=== PATIENT | female | born 1955 | race Caucasian/White ===

== ENCOUNTER 2021-05-18 09:16 | Inpatient (IN) ==
[2021-05-18 10:29] LABS: Basophils # (auto) 0.02 K/uL (0-0.2); Basophils % (auto) 0.2 %; Eosinophils # (auto) 0.21 K/uL (0-0.5); Eosinophils % (auto) 2.1 %; Hematocrit (blood only) 38.7 % (37-47); Hemoglobin 12.7 g/dL (12.0-16.0); Immature Granulocytes # (auto) 0.01 K/uL (0.00-0.02); Immature Granulocytes % (auto) 0.1 %; Lymphocytes # (auto) 1.18 K/uL (1.2-3.4); Lymphocytes % (auto) 12.1 %; Mean Corpuscular Hemoglobin 28.3 pg (25-34); Mean Corpuscular Hgb Conc 32.8 g/dL (32-36); Mean Corpuscular Volume 86.2 fL (80-100); Monocytes # (auto) 0.88 K/uL (0.11-0.59); Neutrophils # (auto) 7.49 K/uL (1.4-6.5); Neutrophils % (auto) 76.5 %; Platelet Count 248 K/uL (130-400); RDW Coefficient of Variation 14.8 % (11.5-14.5); RDW Standard Deviation 47.2 fL (36.4-46.3); Red Blood Count 4.49 M/uL (4.2-5.4); White Blood Count 9.79 K/uL (4.8-10.8)
[2021-05-18 10:40] LABS: Partial Thromboplastin Ratio 0.9; Partial Thromboplastin Time 23.4 Seconds (21.0-31.0); Prothrombin Time 9.7 Seconds (9.0-12.0)
[2021-05-18 10:45] LABS: Alanine Aminotransferase 28 U/L (12-78); Albumin Level 3.3 gm/dl (3.4-5.0); Aspartate Aminotransferase 20 U/L (15-37); BUN Creatinine Ratio 28.9 (10-20); Blood Urea Nitrogen 25 mg/dl (7-18); Calcium 8.8 mg/dl (8.5-10.1); Carbon Dioxide 30 mmol/L (21-32); Chloride 104 mmol/L (98-107); Est GFR (African American) 80.5 ml/min; Est GFR (Non-African American) 69.4 ml/min; Glucose 118 mg/dl (70-99); Magnesium 2.1 mg/dl (1.8-2.4); Potassium 3.2 mmol/L (3.5-5.1); Sodium 138 mmol/L (136-145)
[2021-05-18 10:55] LABS: Albumin Globulin Ratio 0.8 (0.9-2); Alkaline Phosphatase 153 U/L (45-117); Globulin 4.3 gm/dl (2.5-4.0); Total Protein 7.6 gm/dl (6.4-8.2); Troponin I < 0.015 ng/ml (0-0.045)
[2021-05-18] MEDS ORDERED: OPTIRAY 320 125ml IV ONE (11:38)
--- NOTE | 2021-05-18 11:57 | CT Scan Report ---
CT OF THE HEAD WITHOUT CONTRAST CLINICAL HISTORY: Stroke Like Symptoms COMPARISON STUDY: No previous studies for comparison. TECHNIQUE: Helical axial images of the head were obtained without IV contrast. Automated exposure con trol was utilized for the study. A dose lowering technique was utilized adhering to the principles o f ALARA. FINDINGS: No acute intracranial hemorrhage, midline shift or mass effect is present. Ventricular syst em is unremarkable. Basal cisterns are patent. Multifocal encephalomalacia within the left cerebral h emisphere is noted, involving the left frontal and parietal lobes. There is volume loss. There are no findings to suggest acute dural sinus thrombosis or acute territorial infarct. There are no signific ant calvarial abnormalities. IMPRESSION: 1. No acute intracranial findings. 2. Multifocal encephalomalacia with the left cerebral hemisphere suggestive of old infarcts. ACT 112: Negative or not required by law. Electronically signed by: Bi Deutsch M.D. 05/18/2021 11:56 AM
--- NOTE | 2021-05-18 11:57 | CT Scan Report ---
HEAD CTA HISTORY: Dizziness. Headache. Stroke Like Symptoms TECHNIQUE: Multiaxial CT images of the head were performed following the intravenous administration o f contrast to evaluate the major cerebral vessels. Maximum intensity projection images were also obta ined. A dose lowering technique was utilized adhering to the principles of ALARA. COMPARISON: None. FINDINGS: Encephalomalacia within the left frontal and left parietal lobes consistent with old infarc ts. The distal vertebral arteries and basilar artery are widely patent. The bilateral ACAs, MCAs, and opticianry teacher show no significant stenosis, occlusion, aneurysm. The major dural venous sinuses appear patent . Mild calcified plaque within the right carotid siphon without significant stenosis. There is only a trickle of contrast identified within the left intracranial internal carotid artery. There is recons titution of flow within the supraclinoid left ICA likely due to retrograde flow from the [place]. These findings favor chronic critical stenosis within the visualized left internal carotid aminta ry given the associated old left-sided infarcts. IMPRESSION: 1. There is only a trickle of contrast identified within the left intracranial internal carotid arter y. There is reconstitution of flow within the supraclinoid left ICA likely due to retrograde flow fro m the [place]. These findings favor chronic critical stenosis within the visualized left int ernal carotid artery given the associated old left-sided infarcts. 2. No significant stenosis, occlusion, or aneurysm within the bilateral ACAs, MCAs, or opticianry teacher. ACT 112: Negative or not required by law. Electronically signed by: Addi Rodríguez M.D. 05/18/2021 11:56 AM
--- NOTE | 2021-05-18 12:02 | CT Scan Report ---
CT angio neck with con CLINICAL HISTORY: Stroke Like Symptoms COMPARISON STUDY: No previous studies for comparison. TECHNIQUE: CT angiography was performed from the aortic arch to the skull base. MIP imaging was perfo rmed. The patient was scanned in a dynamic helical fashion during intravenous administration of 120 c c of Optiray. A dose lowering technique was utilized adhering to the principles of ALARA. CT DOSE: 1178.51 mGy.cm Technique: CT angiogram of the carotid and vertebral arteries was obtained using intravenous contrast and 3-D reconstruction. NASCET criteria was utilized. Findings: There is a 15 mm right lobe thyroid nodule. There are advanced atheromatous changes with carotid bulb calcification. There is a 75% diameter narr owing at the level the carotid bulb. There is a 67% stenosis of the right internal carotid artery gabriella gin. There is extensive atheromatous plaque within the cervical internal carotid. There is an 80% justyna meter narrowing of the internal carotid 2 cm distal to the bifurcation. There are moderate atheromatous changes within the left common carotid artery. There is a subtotal oc clusion of the left internal carotid artery with a string sign. There is no evidence of hemodynamically significant vertebral stenosis. There is no evidence of verte bral dissection. IMPRESSION: 1. Severe atherosclerotic changes involving both carotids 2. Subtotal occlusion of the left internal carotid artery with a string sign 3. Multifocal right internal carotid artery stenosis measuring a maximum of approximately 80% 2 cm di stal to the bifurcation 4. 75% diameter narrowing of the right carotid bulb ACT 112: Negative or not required by law. Electronically signed by: Bentley Madera M.D. 05/18/2021 12:01 PM
--- NOTE | 2021-05-18 14:01 | History & Physical Report ---
Date of Service May 18, 2021 Assessment & Plan (1) Right leg weakness: (2) Carotid stenosis, bilateral: Plan: -Admit to PCU -Patient presenting from home with reports of headache, lightheadedness, dizziness, right leg weakness -in the ED, head CT shows evidence of old left cerebral hemisphere infarcts -Head/neck CTA shows R ICA stenosis 80% and L ICA string sign -Vascular surgery consult, case discussed with Tomasa Lilly PA-C - Dr. Singh feels as though left ICA is totally occluded and would not benefit from surgical intervention, patient will need follow-up with their office in 6 months for right ICA stenosis follow-up -Given acute symptoms, check brain MRI -likely will need ASA and Plavix, awaiting brain MRI results -Continue statin -Neurology consult, input appreciated -Echo -No indication to continue Coumadin at this time, monitor on telemetry for evidence of atrial fibrillation (3) HTN (hypertension): Plan: -BP currently controlled however will hold anti-hypertensives to allow for permissive hypertension in the setting of possible acute CVA (4) DVT prophylaxis: Plan: -SCDs for now History of Present Illness Chief Complaint: Lightheadedness, dizziness, ambulatory dysfunction Primary Care Provider: Jason Donahue MD 66-year-old female with PMH dyslipidemia, tobacco abuse disorder, history of CVA, HTN, anticoagulant Coumadin, and other problems to below who presents the ED for evaluation of lightheadedness, dizziness, difficulty ambulating. Per neurology note from 2000, she had a left hemisphere stroke and she had intracranial stenosis in the left internal carotid and was placed on Coumadin. Patient was lost to follow-up with neurology and has remained on Coumadin since that time. On 05/12, patient was seen in the ENT clinic for evaluation of voice hoarseness. Lesion was noted concerning for malignancy and direct laryngoscopy and biopsy was recommended. Patient is on Coumadin however declined Lovenox bridge as recommended by [facility], therefore Coumadin has been on hold since 05/12. Patient reports she developed a headache shortly after the ENT clinic eval. she also reports lightheadedness and dizziness with standing. A couple of days past and she reports that she noted that she was leaning to the right while walking and began dragging her right leg. Patient was scheduled for direct laryngoscopy today however given the aforementioned symptoms, presented to the ED for further evaluation. Patient denies chest pain or shortness of breath. No abdominal pain, nausea, vomiting, diarrhea. Denies any other recent il lnesses, fevers, chills. No urinary symptoms. In the ED, head CT is negative for acute findings however shows old left cerebral hemisphere infarcts. Head and neck CTA shows severe atherosclerotic changes of both carotid arteries. Labs are unremarkable, patient is hemodynamically stable. Allergies Allergy/AdvReac Type Severity Reaction Status Date / Time No Known Drug Allergies Allergy Unknown ` Verified 05/18/21 11:33 Home Medications Medication Instructions Recorded Confirmed Type albuterol sulfate 90 mcg/actuation 1 puff INHALATION QID 05/18/21 05/18/21 History aerosol inhaler amlodipine 10 mg tablet 10 mg PO QAM 05/18/21 05/18/21 History atorvastatin 80 mg tablet 80 mg PO PM 05/18/21 05/18/21 History citalopram 10 mg tablet 10 mg PO QAM 05/18/21 05/18/21 History hydrochlorothiazide 25 mg tablet 25 mg PO QAM 05/18/21 05/18/21 History metoprolol succinate 100 mg 100 mg PO BID 05/18/21 05/18/21 History tablet,extended release 24 hr temazepam 15 mg capsule 15 mg PO HS 05/18/21 05/18/21 History warfarin 7.5 mg tablet 3.75 - 7.5 mg PO QAM 05/18/21 05/18/21 History Past Med/Surg History Medical History Carotid stenosis, bilateral History of CVA (cerebrovascular accident) HLD (hyperlipidemia) HTN (hypertension) Trimalleolar fracture of right ankle Surgical History History of cataract surgery No pertinent past surgical history Family History Father Heart disease Social History Smoking Status: Current every day smoker Tobacco Type: Cigarettes Cigarettes Per Day: 10; Hx Alcohol Use: No Hx Substance Use: No Preferred Language: Bengali Communication Ability: Effective Employee Communications Intern Required: No Beliefs That Will Affect Care: None Current Living Situation: Alone Other Information That Helps Us Care for You: No Feels Safe at Home: Yes Safety Concerns: Feels Safe At This Time Assistive Devices: None Review of Systems Review of Systems: ROS per HPI, all other systems reviewed and negative Physical Exam Constitutional: WD/WN, vitals as above Eyes: PERRL, conjunctivae normal, anicteric sclerae ENMT: external ear and nose normal, oropharynx normal Respiratory: normal respiratory effort, lungs clear to auscultation Cardiovascular: Rate/Rhythm: regular rate and regular rhythm Vessels: normal peripheral pulses Extremities: no edema Gastrointestinal (Abdomen): normal bowel sounds, soft, nontender, no hepatosplenomegaly Musculoskeletal: Extremities: no cyanosis and no clubbing Skin: RLE weakness 4/5 Neurologic: PERRL, EOMI, accommodation nl, no face palsy, no dysarthria moves all extremities; not confused Motor/Sensory: no pronator drift Coordination: + abnormal [id number]-af-[id number] test (difficulty with right heel to left luna); normal [id number] test Psychiatric: A+Ox3, euthymic affect Results & Data Results & [facility] ([facility]) Vital Signs (Past 12 Hours) Vital Signs Temp Pulse Pulse Resp BP BP Pulse Ox 05/18/21 13:00 60 18 96 05/18/21 11:18 62 18 126/63 97 05/18/21 10:30 58 L 20 142/62 H 98 05/18/21 10:00 54 L 17 123/69 05/18/21 09:50 54 L 18 05/18/21 09:40 56 L 20 05/18/21 09:34 54 L 17 05/18/21 09:22 36.7 C 60 16 94 Laboratory Results Short CBC 05/18/21 Range/Units 09:48 WBC 9.79 (4.8-10.8) K/uL Hgb 12.7 (12.0-16.0) g/dL Hct 38.7 (37-47) % Plt Count 248 (130-400) K/uL BMP 05/18/21 09:48 Sodium 138 Potassium 3.2 L Chloride 104 Carbon Dioxide 30 BUN 25 H Creatinine 0.87 Glucose 118 H Calcium 8.8 Cardiac Enzymes 05/18/21 Range/Units 09:48 Troponin I < 0.015 (0-0.045) ng/ml Liver Function 05/18/21 Range/Units 09:48 Total Bilirubin 1.0 (0.2-1) mg/dl AST 20 (15-37) U/L ALT 28 (12-78) U/L Alkaline Phosphatase 153 H (45-117) U/L Albumin 3.3 L (3.4-5.0) gm/dl Diagnostic Findings Head CT 05/18/21 10:19 CT OF THE HEAD WITHOUT CONTRAST CLINICAL HISTORY: Stroke Like Symptoms COMPARISON STUDY: No previous studies for comparison. TECHNIQUE: Helical axial images of the head were obtained without IV contrast. Automated exposure control was utilized for the study. A dose lowering technique was utilized adhering to the principles of ALARA. FINDINGS: No acute intracranial hemorrhage, midline shift or mass effect is present. Ventricular system is unremarkable. Basal cisterns are patent. Multifocal encephalomalacia within the left cerebral hemisphere is noted, involving the left frontal and parietal lobes. There is volume loss. There are no findings to suggest acute dural sinus thrombosis or acute territorial infarct. There are no significant calvarial abnormalities. IMPRESSION: 1. No acute intracranial findings. 2. Multifocal encephalomalacia with the left cerebral hemisphere suggestive of old infarcts. ACT 112: Negative or not required by law. Electronically signed by: Bi Deutsch M.D. 05/18/2021 11:56 AM Head CTA 05/18/21 10:19 HEAD CTA HISTORY: Dizziness. Headache. Stroke Like Symptoms TECHNIQUE: Multiaxial CT images of the head were performed following the intravenous administration of contrast to evaluate the major cerebral vessels. Maximum intensity projection images were also obtained. A dose lowering technique was utilized adhering to the principles of ALARA. COMPARISON: None. FINDINGS: Encephalomalacia within the left frontal and left parietal lobes consistent with old infarcts. The distal vertebral arteries and basilar artery are widely patent. The bilateral ACAs, MCAs, and taxi driver show no significant stenosis, occlusion, aneurysm. The major dural venous sinuses appear patent. Mild calcified plaque within the right carotid siphon without significant stenosis. There is only a trickle of contrast identified within the left intrac ranial internal carotid artery. There is reconstitution of flow within the supraclinoid left ICA likely due to retrograde flow from the [place]. These findings favor chronic critical stenosis within the visualized left internal carotid artery given the associated old left-sided infarcts. IMPRESSION: 1. There is only a trickle of contrast identified within the left intracranial internal carotid artery. There is reconstitution of flow within the supraclinoid left ICA likely due to retrograde flow from the [place]. These findings favor chronic critical stenosis within the visualized left internal carotid artery given the associated old left-sided infarcts. 2. No significant stenosis, occlusion, or aneurysm within the bilateral ACAs, MCAs, or taxi driver. ACT 112: Negative or not required by law. Electronically signed by: Addi Rodríguez M.D. 05/18/2021 11:56 AM Neck CTA 05/18/21 10:19 CT angio neck with con CLINICAL HISTORY: Stroke Like Symptoms COMPARISON STUDY: No previous studies for comparison. TECHNIQUE: CT angiography was performed from the aortic arch to the skull base. MIP imaging was performed. The patient was scanned in a dynamic helical fashion during intravenous administration of 120 cc of Optiray. A dose lowering technique was utilized adhering to the principles of ALARA. CT DOSE: 1178.51 mGy.cm Technique: CT angiogram of the carotid and vertebral arteries was obtained using intravenous contrast and 3-D reconstruction. NASCET criteria was utilized. Findings: There is a 15 mm right lobe thyroid nodule. There are advanced atheromatous changes with carotid bulb calcification. There is a 75% diameter narrowing at the level the carotid bulb. There is a 67% stenosis of the right internal carotid artery origin. There is extensive atheromatous plaque within the cervical internal carotid. There is an 80% diameter narrowing of the internal carotid 2 cm distal to the bifurcation. There are moderate atheromatous changes within the left common carotid artery. There is a subtotal occlusion of the left internal carotid artery with a string sign. There is no evidence of hemodynamically significant vertebral stenosis. There is no evidence of vertebral dissection. IMPRESSION: 1. Severe atherosclerotic changes involving both carotids 2. Subtotal occlusion of the left internal carotid artery with a string sign 3. Multifocal right internal carotid artery stenosis measuring a maximum of approximately 80% 2 cm distal to the bifurcation 4. 75% diameter narrowing of the right carotid bulb ACT 112: Negative or not required by law. Electronically signed by: Bentley Madera M.D. 05/18/2021 12:01 PM Code Status & VTE Plan Code Status Patient is a full code as per my discussion with her. VTE Prophylaxis Plan VTE Prophylaxis will be ordered: Yes Supervising Physician Co-Signing Physician Notes Attending Addendum: Late entry, date of service noted above care coordinated with MORENA nguyen's notes please refer to her notes for full details, I agree with her notes patient seen and examined, records reviewed by myself as well on exam, patient seen sitting up in bed, not in distress, comfortable States left side is still weak No headache, dizziness, chest pain, shortness of breath, cough no other symptoms VS noted and reviewed oriented x3, not in distress, speaks in sentences with no effort nor accessory muscle use normal rate, regular rhythm, no murmurs clear breath sounds bilaterally non distended, soft, nontender no bipedal edema, erythema, warmth Oriented x3, cranial nerves II to XII grossly intact except for mild left facial droop, right 5/5 motor strength, left 2 out of 5 motor strength WBC 9.7 Hg 12.7 Crea 0.73 Brain MRI positive for watershed infarcts of the right frontal lobe ASSESSMENT AND PLAN Acute CVA Bilateral carotid artery stenosis --Hold Coumadin, start aspirin Plavix Continue statin Permissive hypertension, hold metoprolol and amlodipine, HCTZ Neurology consultation other diagnoses and plan of care as per MORENA nguyen's notes Lewis Wilkins MD
--- NOTE | 2021-05-18 15:04 | Consultation ---
Date of Consultation May 18, 2021 Assessment & Plan (1) Carotid stenosis, bilateral: Pt with R ICA stenosis of approx 75-80%, and L ICA string sign vs occlusion with reconstitution by CTA. Dr Singh reviewed CTA images and it appears that her L ICA is diminutive/occluded and would not benefit from surgical intervention. No indications for vascular surgical intervention. Anticoagulation not indicated for carotid stenosis. Could consider ASA/plavix d/t acute sx, but will defer to neurology. Do recommend at least single antiplatelet therapy with ASA. Recommend pt undergo surveillance of her R ICA with carotid US in 6 months. Office will contact pt to schedule. Please call if needed. Patient chart reviewed. Agree with treatment plan of the Vascular PA. History of Present Illness Reason for Consultation: carotid stenosis Attending Physician: Gus Singh MD History of Present Illness 66 yo f with hx of carotid stenosis and CVA with R sided hemiplegia in 2008, HTN, hyperlipidemia, asthma, admitted with 3 day hx of worsening R sided arm and leg weakness, seen in consultation today for BL ICA stenosis on CTA. Pt states she was told she could not have surgery on her L carotid artery in 2008 d/t the artery was "missing." States she was placed on coumadin at the time. States she had to "learn to walk and talk" again d/t the severity of her CVA. States she has been in normal state of health, but underwent a laryngoscope about 2 weeks ago and has had a R sided DENNISON since that time. Also c/o dizziness. Stopped her coumadin a few days ago in preparation for a bx that was to be done today, but was cx. Admits R arm/leg weakness, and states she is not able to ambulate d/t R leg weakness. Denies numbness, amaurosis, difficulty speaking or swallowing. States she is hungry. Denies recent illness, chest pain, palpitations, fever, abd pain, SOB, cough, N/V, rest pain, claudication, other complaints. CTA neck demonstrates approx 75-80% stenosis of R ICA and a string sing vs occlusion of L ICA with reconstitution. Old L hemispheric CVA noted. Allergies Allergy/AdvReac Type Severity Reaction Status Date / Time No Known Drug Allergies Allergy Unknown ` Verified 05/18/21 11:33 Home Medications Medication Instructions Recorded Confirmed Type albuterol sulfate 90 mcg/actuation 1 puff INHALATION QID 05/18/21 05/18/21 History aerosol inhaler amlodipine 10 mg tablet 10 mg PO QAM 05/18/21 05/18/21 History atorvastatin 80 mg tablet 80 mg PO PM 05/18/21 05/18/21 History citalopram 10 mg tablet 10 mg PO QAM 05/18/21 05/18/21 History hydrochlorothiazide 25 mg tablet 25 mg PO QAM 05/18/21 05/18/21 History metoprolol succinate 100 mg 100 mg PO BID 05/18/21 05/18/21 History tablet,extended release 24 hr temazepam 15 mg capsule 15 mg PO HS 05/18/21 05/18/21 History warfarin 7.5 mg tablet 3.75 - 7.5 mg PO QAM 05/18/21 05/18/21 History Patient History Medical History Carotid stenosis, bilateral History of CVA (cerebrovascular accident) HLD (hyperlipidemia) HTN (hypertension) Trimalleolar fracture of right ankle Surgical History History of cataract surgery No pertinent past surgical history Family History Father Heart disease Social History Smoking Status: Current every day smoker Tobacco Type: Cigarettes Cigarettes Per Day: 10; Hx Alcohol Use: No Hx Substance Use: No Preferred Language: Egyptian Communication Ability: Effective Back Tender Cylinder Required: No Beliefs That Will Affect Care: None Current Living Situation: Alone Other Information That Helps Us Care for You: No Feels Safe at Home: Yes Safety Concerns: Feels Safe At This Time Assistive Devices: Denture - Upper Review of Systems Review of Systems: As per HPI, otherwise negative Physical Exam Constitutional: WD/WN, vitals as above Respiratory: normal respiratory effort, lungs clear to auscultation Auscultation: + diminished lung sounds Cardiovascular: Rate/Rhythm: regular rate and regular rhythm Vessels: + carotid bruit, femoral pulses present, posterior tibial pulses present (nonpalpable BLE), dorsalis pedis pulses present (+2 LLE, +1 RLE), brachial pulses present and radial pulses present; + abnormal peripheral pulses Gastrointestinal (Abdomen): normal bowel sounds, soft, nontender, no hepatosplenomegaly Musculoskeletal: Extremities: extremities normal to inspection Neurologic: moves all extremities, + focal motor deficit (RUE/RLE 4/5 strength) and awake; not confused Psychiatric: A+Ox3, euthymic affect Results & Data ([facility]) Vital Signs (Past 12 Hours) Vital Signs Temp Pulse Pulse Resp BP BP Pulse Ox 05/18/21 13:00 60 18 96 05/18/21 11:18 62 18 126/63 97 05/18/21 10:30 58 L 20 142/62 H 98 05/18/21 10:00 54 L 17 123/69 05/18/21 09:50 54 L 18 05/18/21 09:40 56 L 20 05/18/21 09:34 54 L 17 05/18/21 09:22 36.7 C 60 16 94
[2021-05-18] MEDS ORDERED: POTASSIUM CHLORIDE CRTAB 20 MEQ TABCR PO STA (15:39)
[2021-05-18] MEDS ORDERED: LORazepam 1 MG/2 ML VIAL IV PRN (16:46)
--- NOTE | 2021-05-18 17:14 | Electrocardiogram Report ---
Test Reason : Blood Pressure : / mmHG Vent. Rate : 057 BPM Atrial Rate : 057 BPM P-R Int : 168 ms QRS Dur : 072 ms QT Int : 440 ms P-R-T Axes : 055 043 064 degrees QTc Int : 428 ms Poor data quality, interpretation may be adversely affected Sinus bradycardia Otherwise normal ECG When compared with ECG of 08-NOV-2014 15:10, No significant change was found Confirmed by Sudarshan Viramontes ([id number]) on 05/18/2021 5:13:20 PM Referred By: REFERRED SELF Confirmed By:Surinder Viramontes
--- NOTE | 2021-05-18 17:30 | Emergency Department Note ---
History of Present Illness General Chief complaint: Neuro Symptoms/Deficit Stated complaint: DIZZY,LEANING TO R SIDE,HEADACHE,LIGHT SENSITIVITY Time Seen by Provider: 05/18/21 09:36 History of Present Illness Provider complaint: Headache near syncope Onset (ago): day(s) 4 Location: head Associated symptoms: + headaches and + weakness; no chest pain, no cough, no fever/chills, no nausea/vomiting or no shortness of breath 66-year-old female presents emergency department for headache weakness and dizziness. Patient reports her headache is 6 out of 10. Patient reports her symptoms began 4 days ago. Patient reports that she was having some difficulty walking and weakness starting yesterday. She reports no falls. Patient does states she feels like she would fall down if she tried to get up and walk. Patient was supposed to have a surgical procedure/biopsy done by ENT at [facility] which she called the [facility] facility the advised her to come to the emergency department to be evaluated instead of going for her procedure. Patient is supposed be on Coumadin but has been off her Coumadin since Sunday to have the biopsy/procedure done. Home Medications Medication Instructions Recorded Confirmed Type albuterol sulfate 90 mcg/actuation 1 puff INHALATION QID 05/18/21 05/18/21 History aerosol inhaler amlodipine 10 mg tablet 10 mg PO QAM 05/18/21 05/18/21 History atorvastatin 80 mg tablet 80 mg PO PM 05/18/21 05/18/21 History citalopram 10 mg tablet 10 mg PO QAM 05/18/21 05/18/21 History hydrochlorothiazide 25 mg tablet 25 mg PO QAM 05/18/21 05/18/21 History metoprolol succinate 100 mg 100 mg PO BID 05/18/21 05/18/21 History tablet,extended release 24 hr temazepam 15 mg capsule 15 mg PO HS 05/18/21 05/18/21 History warfarin 7.5 mg tablet 3.75 - 7.5 mg PO QAM 05/18/21 05/18/21 History Allergies Allergy/AdvReac Type Severity Reaction Status Date / Time No Known Drug Allergies Allergy Unknown ` Verified 05/18/21 11:33 Past Med/Surg History Medical History (Updated 05/18/21 @ 17:30 by Ian Mendieta) Carotid stenosis, bilateral History of CVA (cerebrovascular accident) HLD (hyperlipidemia) HTN (hypertension) Trimalleolar fracture of right ankle Surgical History (Updated 05/18/21 @ 17:30 by MORENA Nguyen) History of cataract surgery No pertinent past surgical history Social History Feels Safe at Home: Yes Review of Systems A total of 10 systems reviewed and were otherwise negative Physical Exam Vital Signs Vital Signs - 24 hr 05/18/21 09:22 05/18/21 09:34 05/18/21 09:40 Temperature 36.7 C Temperature Source Temporal Artery Scan Pulse Rate 60 54 L 56 L Pulse Rate [Apical] Pulse Rate from SpO2 Sensor Respiratory Rate 16 17 20 Respiratory Effort / Characteristics Non-Labored Respiratory Depth Normal Respiratory Pattern Regular Blood Pressure Blood Pressure [Left Arm] Blood Pressure Mean Blood Pressure Mean [Left Arm] Blood Pressure Position Sitting Pulse Oximetry 94 Oxygen Delivery Method Room Air Sepsis Recent Fever Within 48 Hours No Sepsis New/Unexplained Change in Mental Status No Sepsis Action Taken by Nursing No Action Required 05/18/21 09:50 05/18/21 10:00 05/18/21 10:30 Temperature Temperature Source Pulse Rate 54 L 54 L 58 L Pulse Rate [Apical] Pulse Rate from SpO2 Sensor 58 L Respiratory Rate 18 17 20 Respiratory Effort / Characteristics Respiratory Depth Respiratory Pattern Blood Pressure 123/69 142/62 H Blood Pressure [Left Arm] Blood Pressure Mean 87 88 Blood Pressure Mean [Left Arm] Blood Pressure Position Pulse Oximetry 98 Oxygen Delivery Method Sepsis Recent Fever Within 48 Hours Sepsis New/Unexplained Change in Mental Status Sepsis Action Taken by Nursing 05/18/21 11:18 05/18/21 13:00 05/18/21 15:00 Temperature Temperature Source Pulse Rate Pulse Rate [Apical] 62 60 60 Pulse Rate from SpO2 Sensor Respiratory Rate 18 18 18 Respiratory Effort / Characteristics Respiratory Depth Respiratory Pattern Blood Pressure Blood Pressure [Left Arm] 126/63 132/78 Blood Pressure Mean Blood Pressure Mean [Left Arm] 84 96 Blood Pressure Position Pulse Oximetry 97 96 95 Oxygen Delivery Method Room Air Room Air Room Air Sepsis Recent Fever Within 48 Hours Sepsis New/Unexplained Change in Mental Status Sepsis Action Taken by Nursing Physical Exam GENERAL: She is oriented to person, place, and time. She appears well-developed and well-nourished. She does not appear distressed. HENT: Exam performed. -Head: Normocephalic and atraumatic. -Right Ear: External ear normal. No mastoid tenderness. -Left Ear: External ear normal. No mastoid tenderness. -Mouth/Throat: The oropharynx is clear and moist. No trismus in the jaw. No dental abscesses or uvula swelling. No oropharyngeal exudate or tonsillar abscesses. EYES: Conjunctivae and EOM are normal. Pupils are equal, round, and reactive to light. Right eye exhibits no discharge. Left eye exhibits no discharge. No scleral icterus. NECK: Normal range of motion. Neck supple. No JVD present. No spinous process tenderness present. No carotid bruit present. No rigidity. No tracheal deviation and normal range of motion present. No Brudzinski's sign and no Kernig's sign noted. CV: Normal rate, regular rhythm, normal heart sounds and intact distal pulses. There is no peripheral edema. Palpable radial pulses bue. PULM/CHEST: Effort normal and breath sounds normal. No respiratory distress. No stridor. She has no wheezes. She has no rales. -Chest Wall: She exhibits no tenderness. ABD: The abdomen is soft. Bowel sounds are normal. She has no distension. No mass is present. There is no tenderness. There is no rebound, no guarding, no Grande's sign and no tenderness at McBurney's point. Rovsig negative MUSC/SKEL: Normal range of motion. There is no peripheral edema, tenderness or deformity. LYMPH: No cervical adenopathy. NEURO: Weakness of the left lower extremity. Patient is unable to walk in a stable manner and she is dragging her left lower extremity. SKIN: Skin is warm and dry. She is not diaphoretic. PSYCH: She has a normal mood and affect. Behavior is normal. Judgment and thought content normal. Course Course 0936: The patient was evaluated in room C12. A complete history and physical exam was performed Cardiac monitoring: An order was placed for continuous cardiac monitoring. The monitor shows a rate of 60 with sinus rhythm 1320: Vital signs stable. Labs within normal limits. CT of the head within normal limits. CT angios show severe atherosclerosis in both carotid arteries with a subtotal occlusion of left internal carotid artery with a string sign and a multifocal right internal carotid artery stenosis measuring up to 80% of the bifurcation. CTA of the head showed only trickle contrast in the left intracranial internal carotid artery with reconstitution of flow within the cachil dehe of [place] favoring chronic critical stenosis. I did discuss the case with Gloria nguyen ETL APPLICATION DEVEL[facility] as it is thought that the patient had a stroke most likely due to her severe carotid artery disease. Patient is not a TPA candidate as her symptoms started greater than 24 hours ago. She asked that we speak with vascular surgery. I did discuss the case with vascular surgery when PA-C for Dr. Singh who agrees that the [facility] Tomasa states that Dr. Singh will review the CAT scans and agreed to be on consult. Administered Medications Lorazepam (Ativan) 1 mg in 2 mls @ 2 mls/min IV NOW PRN PRN Reason: MRI pre med Stop: 06/17/21 16:45 Last Admin: 05/18/21 17:05 Dose: 2 mls/min Documented by: [id number] Discontinued Medications Ioversol (Optiray 320 125ml) 120 ml IV ONCE ONE Stop: 05/18/21 11:39 Last Admin: 05/18/21 11:39 Dose: 120 ml Documented by: [id number] Potassium Chloride (Potassium Chloride Crtab 20 Meq Tabcr) 40 meq PO NOW STA Stop: 05/18/21 15:40 Last Admin: 05/18/21 16:36 Dose: 40 meq Documented by: [id number] Medical Decision Making Laboratory Data Result diagrams: 05/18/21 09:48 05/18/21 09:48 Lab Results 05/18/21 05/18/21 05/18/21 Range/Units 09:48 09:48 09:48 WBC 9.79 (4.8-10.8) K/uL RBC 4.49 (4.2-5.4) M/uL Hgb 12.7 (12.0-16.0) g/dL Hct 38.7 (37-47) % MCV 86.2 (80-100) fL MCH 28.3 (25-34) pg MCHC 32.8 (32-36) g/dL RDW Std Deviation 47.2 H (36.4-46.3) fL RDW Coeff of Dang 14.8 H (11.5-14.5) % Plt Count 248 (130-400) K/uL MPV 11.0 H (7.4-10.4) fL Immature Gran % (Auto) 0.1 % Neut % (Auto) 76.5 % Lymph % (Auto) 12.1 % [place] % (Auto) 9.0 % Eos % (Auto) 2.1 % Baso % (Auto) 0.2 % Neut # (Auto) 7.49 H (1.4-6.5) K/uL Lymph # (Auto) 1.18 L (1.2-3.4) K/uL [place] # (Auto) 0.88 H (0.11-0.59) K/uL Eos # (Auto) 0.21 (0-0.5) K/uL Baso # (Auto) 0.02 (0-0.2) K/uL Immature Gran # (Auto) 0.01 (0.00-0.02) K/uL PT 9.7 (9.0-12.0) Seconds INR 1.0 (0.9-1.1) APTT 23.4 (21.0-31.0) Seconds PTT Ratio 0.9 Sodium 138 (136-145) mmol/L Potassium 3.2 L (3.5-5.1) mmol/L Chloride 104 (98-107) mmol/L Carbon Dioxide 30 (21-32) mmol/L Anion Gap 4.0 (3-11) BUN 25 H (7-18) mg/dl Creatinine 0.87 (0.6-1.2) mg/dl Est Cr Clr Drug Dosing Not Reportable Est GFR ( Amer) 80.5 ml/min Est GFR (Non-Af Amer) 69.4 ml/min BUN/Creatinine Ratio 28.9 H (10-20) Glucose 118 H (70-99) mg/dl Calcium 8.8 (8.5-10.1) mg/dl Magnesium 2.1 (1.8-2.4) mg/dl Total Bilirubin 1.0 (0.2-1) mg/dl AST 20 (15-37) U/L ALT 28 (12-78) U/L Alkaline Phosphatase 153 H (45-117) U/L Troponin I < 0.015 (0-0.045) ng/ml Total Protein 7.6 (6.4-8.2) gm/dl Albumin 3.3 L (3.4-5.0) gm/dl Globulin 4.3 H (2.5-4.0) gm/dl Albumin/Globulin Ratio 0.8 L (0.9-2) COVID-19 Eval Order SARS-CoV-2 (PCR) (Negative) Blood Type Antibody Screen 05/18/21 05/18/21 05/18/21 Range/Units 10:59 14:45 14:45 WBC (4.8-10.8) K/uL RBC (4.2-5.4) M/uL Hgb (12.0-16.0) g/dL Hct (37-47) % MCV (80-100) fL MCH (25-34) pg MCHC (32-36) g/dL RDW Std Deviation (36.4-46.3) fL RDW Coeff of Dang (11.5-14.5) % Plt Count (130-400) K/uL MPV (7.4-10.4) fL Immature Gran % (Auto) % Neut % (Auto) % Lymph % (Auto) % [place] % (Auto) % Eos % (Auto) % Baso % (Auto) % Neut # (Auto) (1.4-6.5) K/uL Lymph # (Auto) (1.2-3.4) K/uL [place] # (Auto) (0.11-0.59) K/uL Eos # (Auto) (0-0.5) K/uL Baso # (Auto) (0-0.2) K/uL Immature Gran # (Auto) (0.00-0.02) K/uL PT (9.0-12.0) Seconds INR (0.9-1.1) APTT (21.0-31.0) Seconds PTT Ratio Sodium (136-145) mmol/L Potassium (3.5-5.1) mmol/L Chloride (98-107) mmol/L Carbon Dioxide (21-32) mmol/L Anion Gap (3-11) BUN (7-18) mg/dl Creatinine (0.6-1.2) mg/dl Est Cr Clr Drug Dosing Est GFR ( Amer) ml/min Est GFR (Non-Af Amer) ml/min BUN/Creatinine Ratio (10-20) Glucose (70-99) mg/dl Calcium (8.5-10.1) mg/dl Magnesium (1.8-2.4) mg/dl Total Bilirubin (0.2-1) mg/dl AST (15-37) U/L ALT (12-78) U/L Alkaline Phosphatase (45-117) U/L Troponin I (0-0.045) ng/ml Total Protein (6.4-8.2) gm/dl Albumin (3.4-5.0) gm/dl Globulin (2.5-4.0) gm/dl Albumin/Globulin Ratio (0.9-2) COVID-19 Eval Order Covid19 at [facility] SARS-CoV-2 (PCR) NEGATIVE (Negative) Blood Type A Positive Antibody Screen NEGATIVE Imaging Data Radiologist's Impression: Head CT 05/18/21 10:19 CT OF THE HEAD WITHOUT CONTRAST CLINICAL HISTORY: Stroke Like Symptoms COMPARISON STUDY: No previous studies for comparison. TECHNIQUE: Helical axial images of the head were obtained without IV contrast. Automated exposure control was utilized for the study. A dose lowering technique was utilized adhering to the principles of ALARA. FINDINGS: No acute intracranial hemorrhage, midline shift or mass effect is present. Ventricular system is unremarkable. Basal cisterns are patent. Multifocal encephalomalacia within the left cerebral hemisphere is noted, involving the left frontal and parietal lobes. There is volume loss. There are no findings to suggest acute dural sinus thrombosis or acute territorial infarct. There are no significant calvarial abnormalities. IMPRESSION: 1. No acute intracranial findings. 2. Multifocal encephalomalacia with the left cerebral hemisphere suggestive of old infarcts. ACT 112: Negative or not required by law. Electronically signed by: Bi Deutsch M.D. 05/18/2021 11:56 AM Head CTA 05/18/21 10:19 HEAD CTA HISTORY: Dizziness. Headache. Stroke Like Symptoms TECHNIQUE: Multiaxial CT images of the head were performed following the intravenous administration of contrast to evaluate the major cerebral vessels. Maximum intensity projection images were also obtained. A dose lowering technique was utilized adhering to the principles of ALARA. COMPARISON: None. FINDINGS: Encephalomalacia within the left frontal and left parietal lobes consistent with old infarcts. The distal vertebral arteries and basilar artery are widely patent. The bilateral ACAs, MCAs, and application security developer show no significant sten osis, occlusion, aneurysm. The major dural venous sinuses appear patent. Mild calcified plaque within the right carotid siphon without significant stenosis. There is only a trickle of contrast identified within the left intracranial internal carotid artery. There is reconstitution of flow within the supraclinoid left ICA likely due to retrograde flow from the cachil dehe of [place]. These findings favor chronic critical stenosis within the visualized left internal carotid artery given the associated old left-sided infarcts. IMPRESSION: 1. There is only a trickle of contrast identified within the left intracranial internal carotid artery. There is reconstitution of flow within the supraclinoid left ICA likely due to retrograde flow from the c[place]il dehe of [place]. These findings favor chronic critical stenosis within the visualized left internal carotid artery given the associated old left-sided infarcts. 2. No significant stenosis, occlusion, or aneurysm within the bilateral ACAs, MCAs, or application security developer. ACT 112: Negative or not required by law. Electronically signed by: Addi Rodríguez M.D. 05/18/2021 11:56 AM Neck CTA 05/18/21 10:19 CT angio neck with con CLINICAL HISTORY: Stroke Like Symptoms COMPARISON STUDY: No previous studies for comparison. TECHNIQUE: CT angiography was performed from the aortic arch to the skull base. MIP imaging was performed. The patient was scanned in a dynamic helical fashion during intravenous administration of 120 cc of Optiray. A dose lowering technique was utilized adhering to the principles of ALARA. CT DOSE: 1178.51 mGy.cm Technique: CT angiogram of the carotid and vertebral arteries was obtained using intravenous contrast and 3-D reconstruction. NASCET criteria was utilized. Findings: There is a 15 mm right lobe thyroid nodule. There are advanced atheromatous changes with carotid bulb calcification. There is a 75% diameter narrowing at the level the carotid bulb. There is a 67% stenosis of the right internal carotid artery origin. There is extensive atheromatous plaque within the cervical internal carotid. There is an 80% diameter narrowing of the internal carotid 2 cm distal to the bifurcation. There are moderate atheromatous changes within the left common carotid artery. There is a subtotal occlusion of the left internal carotid artery with a string sign. There is no evidence of hemodynamically significant vertebral stenosis. There is no evidence of vertebral dissection. IMPRESSION: 1. Severe atherosclerotic changes involving both carotids 2. Subtotal occlusion of the left internal carotid artery with a string sign 3. Multifocal right internal carotid artery stenosis measuring a maximum of approximately 80% 2 cm distal to the bifurcation 4. 75% diameter narrowing of the right carotid bulb ACT 112: Negative or not required by law. Electronically signed by: Bentley Madera M.D. 05/18/2021 12:01 PM ECG Data Indication: + weakness Rate (beats per minute): 57 Rhythm: + normal sinus ECG Intervals/blocks: + Normal MS and + Normal QT-c ECG ST segments: + Normal ST segments Additional Comments: QRS 72 MDM Narrative Vital signs stable. Labs within normal limits. CT of the head within normal limits. CT angios show severe atherosclerosis in both carotid arteries with a subtotal occlusion of left internal carotid artery with a string sign and a multifocal right internal carotid artery stenosis measuring up to 80% of the bifurcation. CTA of the head showed only trickle contrast in the left intracranial internal carotid artery with reconstitution of flow within the cachil dehe of [place] favoring chronic critical stenosis. I did discuss the case with Gloria nguyen ETL APPLICATION DEVELOPER [facility] as it is thought that the patient had a stroke most likely due to her severe carotid artery disease. Patient is not a TPA candidate as her symptoms started greater than 24 hours ago. She asked that we speak with vascular surgery. I did discuss the case with vascular surgery when PA-C for Dr. Singh who agrees that the [facility] Tomasa states that Dr. Singh will review the CAT scans and agreed to be on consult. Impression & Plan Acute CVA (cerebrovascular accident), Carotid stenosis, bilateral Discharge Plan Visit Data Chief Complaint: Neuro Symptoms/Deficit Stated Complaint: DIZZY,LEANING TO R SIDE,HEADACHE,LIGHT SENSITIVITY ED Provider: Ian Mendieta Discharge Problem: Acute CVA (cerebrovascular accident), Carotid stenosis, bilateral Patient Disposition: Admitted As Inpatient Forms Stand Alone Forms: [facility] Prescriptions Prescriptions: No Action atorvastatin 80 mg tablet 80 mg PO PM RF: 0 citalopram 10 mg tablet 10 mg PO QAM RF: 0 warfarin 7.5 mg tablet 3.75 - 7.5 mg PO QAM RF: 0 metoprolol succinate 100 mg tablet extended release 24 hr 100 mg PO BID RF: 0 temazepam 15 mg capsule 15 mg PO HS RF: 0 amlodipine 10 mg tablet 10 mg PO QAM RF: 0 hydrochlorothiazide 25 mg tablet 25 mg PO QAM RF: 0 albuterol sulfate 90 mcg/actuation HFA aerosol inhaler 1 puff INHALATION QID RF: 0 Referrals Referrals: Jason Donahue MD [Primary Care Provider] -
[2021-05-18] MEDS ORDERED: GADOBUTROL 65ML VIAL IV ONE (17:53)
--- NOTE | 2021-05-18 18:24 | Magnetic Resonance Report ---
MR brain wo/w con HISTORY: 66 years-old Female stroke symptoms acute strokelike symptoms COMPARISON: CT head, CTA head and neck studies of same day TECHNIQUE: Multi planar multisequence MRI of the brain was obtained both with and without the use of 8.0 mL Gadavist FINDINGS: Multifocal areas of restricted diffusion are noted within the centrum semiovale of the right frontal lobe measuring up to 1.8 cm with decreased signal on ADC map compatible with acute watershed infarcts . No acute territorial infarct. Encephalomalacia and gliosis of the left frontal and parietal lobes c ompatible with areas of chronic infarct. Motion degraded exam. No acute intracranial hemorrhage, midl ine shift, abnormal extra-axial collection, hydrocephalus or intracranial mass. No abnormal enhanceme nt. Mild involutional changes. Mild to moderate T2/FLAIR hyperintensities throughout the white matter are suggestive of chronic microvascular ischemic disease. Cerebral venous sinuses appear patent. The major arterial flow voids are suboptimally visualized seco ndary to motion artifact and are better evaluated on the CTA studies of same day. Prior bilateral kelsie s repair. Unremarkable skull and soft tissues. IMPRESSION: 1. Small acute watershed infarcts of the right frontal lobe centrum semiovale. 2. No acute intracranial hemorrhage. 3. Age-related involutional changes with chronic microvascular ischemic disease. 4. Chronic left cerebral infarcts. 5. No abnormal enhancement. ACT 112: Negative or not required by law. The above report was generated using voice recognition software. It may contain grammatical, syntax o r spelling errors. Electronically signed by: David Yan M.D. 05/18/2021 6:22 PM
[2021-05-18] MEDS ORDERED: CLOPIDOGREL BISULFATE 75 MG TAB PO ONE (19:36)
[2021-05-18] MEDS ORDERED: PHARMACIST DISCHARGE MED REC CONSULT PRN (19:36)
[2021-05-18] MEDS ORDERED: ACETAMINOPHEN 325 MG TAB PO PRN (19:36)
[2021-05-18] MEDS: SODIUM CHLORIDE 0.9% 1000ML 1,000 ML IV SCH (21:35)
[2021-05-18] MEDS: ASPIRIN 81 MG ECTAB PO SCH (22:47)
[2021-05-18] MEDS: ATORVASTATIN 40 MG TAB PO SCH (22:48)
[2021-05-19 07:49] LABS: Basophils # (auto) 0.01 K/uL (0-0.2); Basophils % (auto) 0.1 %; Eosinophils % (auto) 2.7 %; Hematocrit (blood only) 35.9 % (37-47); Hemoglobin 11.8 g/dL (12.0-16.0); Immature Granulocytes # (auto) 0.02 K/uL (0.00-0.02); Immature Granulocytes % (auto) 0.3 %; Lymphocytes # (auto) 1.55 K/uL (1.2-3.4); Lymphocytes % (auto) 21.3 %; Mean Corpuscular Hgb Conc 32.9 g/dL (32-36); Mean Corpuscular Volume 85.1 fL (80-100); Mean Platelet Volume 10.5 fL (7.4-10.4); Monocytes # (auto) 0.62 K/uL (0.11-0.59); Monocytes % (auto) 8.5 %; Neutrophils # (auto) 4.88 K/uL (1.4-6.5); Neutrophils % (auto) 67.1 %; Platelet Count 223 K/uL (130-400); RDW Standard Deviation 46.8 fL (36.4-46.3); Red Blood Count 4.22 M/uL (4.2-5.4); White Blood Count 7.28 K/uL (4.8-10.8)
[2021-05-19 08:24] LABS: BUN Creatinine Ratio 21.3 (10-20); Calcium 8.5 mg/dl (8.5-10.1); Creatinine Clr Calc Pharmacy 77.5 ml/min; Est GFR (African American) 99.5 ml/min; Est GFR (Non-African American) 85.8 ml/min; Potassium 3.7 mmol/L (3.5-5.1)
[2021-05-19 09:12] LABS: Estimated Average Glucose 123 mg/dl; Hemoglobin A1C 5.9 % (4.5-5.6)
[2021-05-19] MEDS: CLOPIDOGREL BISULFATE 75 MG TAB PO SCH (09:32)
[2021-05-19] MEDS: CITALOPRAM 20 MG TAB PO SCH (09:32)
[2021-05-19] MEDS: NICOTINE 21 MG/24 HR TDSY TD SCH (09:32)
[2021-05-19] MEDS: ASPIRIN 81 MG ECTAB PO SCH (10:50)
[2021-05-19] MEDS: SODIUM CHLORIDE 0.9% 1000ML 1,000 ML IV SCH (19:04)
--- NOTE | 2021-05-19 19:42 | Hospitalist Progress Note ---
Date of Service May 19, 2021 Assessment & Plan (1) Right leg weakness: (2) Carotid stenosis, bilateral: Plan: Acute CVA, right frontal lobe Per MORENA nguyen's notes: -Patient presenting from home with reports of headache, lightheadedness, dizziness, right leg weakness -in the ED, head CT shows evidence of old left cerebral hemisphere infarcts -Head/neck CTA shows R ICA stenosis 80% and L ICA string sign -Vascular surgery consult, case discussed with Tomasa Lilly PA-C - Dr. Singh feels as though left ICA is totally occluded and would not benefit from surgical intervention, patient will need follow-up with their office in 6 months for right ICA stenosis follow-up -Given acute symptoms, check brain MRI -likely will need ASA and Plavix, awaiting brain MRI results -Continue statin -Neurology consult, input appreciated -Echo -No indication to continue Coumadin at this time, monitor on telemetry for evidence of atrial fibrillation 05/19/2021 Brain MRI 1. Small acute watershed infarcts of the right frontal lobe centrum semiovale. 2. No acute intracranial hemorrhage. 3. Age-related involutional changes with chronic microvascular ischemic disease. 4. Chronic left cerebral infarcts. 5. No abnormal enhancement. Left-sided weakness improving Continue aspirin and Plavix, continue usual high-dose statin Coumadin has been discontinued Neurologist consulted Continue PT and OT evaluation Smoking cessation Bilateral carotid artery stenosis Management per noted below (3) HTN (hypertension): Plan: Will observe permissive hypertension in the next 24 to 48 hours Continue metoprolol but reduce to 25 mg twice daily With amlodipine and chlorthalidone for now (4) DVT prophylaxis: Plan: -SCDs for now Reevaluate for heparin subcutaneous daily (5) Acute CVA (cerebrovascular accident): Plan: Management per above Plan: PT OT evaluation pending May need inpatient rehab plan of care discussed with patient and her niece in detail and at length all questions answered They are understanding, agreeable, comfortable with the plan of care Admission and Anticipated Discharge Date Admission Date: May 18, 2021 Subjective Follow-up for acute CVA, etc. Resting in bed, comfortable, sitting up, patient's niece Arlette visiting at bedside States she feels improved overall today compared to yesterday Left-sided weakness improving Denies headache, dizziness, chest pain, shortness of breath, abdominal pain, nausea vomiting, bleeding No new neurologic focal deficits No other symptoms Review of Systems Review of Systems: all Noted, negative except for above Physical Exam Physical Exam: General- oriented x 3, not in distress, speaks in sentences with no effort or accessory muscle use Eyes- anicteric Neck- no JVD Lungs- clear breath sounds bilaterally, no rales/wheezes Heart- normal rate, regular rhythm; no murmurs Abdomen- normal bowel sounds, nondistended, soft, nontender Extremities- no pretibial edema, no calf tenderness Neuro- alert, oriented x 3; cranial nerves grossly intact except for mild left facial droop, right-sided extremities 5/5 motor strength, left-sided extremities 4 over 5 motor strength Sensation 100% except for left lower extremity 80% Skin- warm & dry Results & Data Results & Data ([facility]) Vital Signs (Past 12 Hours) Vital Signs Temp Pulse Pulse Resp BP Pulse Ox 05/19/21 19:17 37.0 C 65 18 123/58 L 94 05/19/21 16:00 36.9 C 84 20 119/63 95 05/19/21 11:50 36.5 C 88 20 121/63 96 05/19/21 08:00 59 L all noted and reviewed including below
[2021-05-19] MEDS: ATORVASTATIN 40 MG TAB PO SCH (20:31)
[2021-05-19] MEDS: METOPROLOL SUCC 25MG EXT REL TAB PO SCH (20:36)
--- NOTE | 2021-05-20 07:43 | Consultation Report ---
DATE OF CONSULTATION: 05/19/2021 REASON FOR CONSULTATION: Stroke, carotid stenosis. HISTORY OF PRESENT ILLNESS: The patient is a 66-year-old right-handed female with multiple medical c omorbidities. In 2000 when she was 46, she had a left MCA infarction related to a left carotid occlu susy. I have reviewed the report of a carotid ultrasound from 2000 and it shows complete occlusion o f the left internal carotid and no high-grade stenosis of the right internal carotid. The patient ap parently did well with mild residual right hemiparesis, but did not need to ambulate with an assistiv e device. The patient had been in her usual state of health. The day prior to admission, she noted she had some difficulty with ambulation when walking in a grocery store. The history is made difficul t by the fact that the patient has some right/left confusion and she has told to multiple providers t hat she had new right-sided weakness, but reviewing this very carefully, it appears that she had a ne w left arm and leg weakness. No change in speech and difficult to describe change in her vision. Jeff maximo had nasal endoscopy about 3 weeks ago and has had a right-sided headache since that time. She was scheduled to have a biopsy, I believe, of her neck and ENT today. By report, she elected to hold her Coumadin rather than bridge Coumadin. She stopped that on Sunday, which is 5 days prior to admissio n and started with the aforementioned symptoms on Sunday. When she contacted the anesthesiologist f or her surgical procedure Sunday, she was advised to go to the Emergency Room. The patient feels improved since admission. In the interim between 2000 and 2020, she has had no other transient ische priscilla attacks. She reports lightheadedness, which she has marked difficulty describing. It is unclear to this examiner whether or not she has orthostatic lightheadedness or orthostatic sensitivity to her neurologic deficit. She continues to smoke. It appears that Coumadin was chosen for stroke prevention at the time of her carotid occlusion. Uncl ear if she ever followed up, but she remained on Coumadin therapy. She denies a history of DVT, PE, cancer, atrial fibrillation, or rheumatic fever. PAST MEDICAL HISTORY: Notable for hypertension, dyslipidemia, smoking, anticoagulant -- on Coumadin, carotid stenosis, trimalleolar fracture of the right ankle. PAST SURGICAL HISTORY: Cataract surgery. SOCIAL HISTORY: Smokes, does not drink alcohol. Lives alone. FAMILY HISTORY: Heart disease, but no stroke. ALLERGIES: None known. HOME MEDICATIONS: Albuterol, amlodipine, atorvastatin 80, Celexa, HCTZ, metoprolol, temazepam and wa rfarin. DATA: Labs on admission notable for a normal white count, H and H, and platelet count. PT 9.7, INR 1.0. Electrolytes notable for potassium of 3.2, BUN 25/0.87, glucose of 118, alkaline phosphatase of 153, LDL 75. CT of the head noncontrast shows multifocal encephalomalacia within the left cerebral h emisphere suggestive of old infarct. CTA of the head and neck which I reviewed showed "a trickle of contrast within the left internal carotid artery." There is reconstitution of flow within the suprac linoid left ICA likely due to retrograde flow from the [place] of [place]. These favor a chronic critic al stenosis within the visualized internal carotid. CTA of the neck showed subtotal occlusion of the left internal carotid. Multifocal right internal carotid stenosis measuring approximately 80% 2 cm d istal to the bifurcation, 75% narrowing of the right carotid bulb and subtotal occlusion of the left internal carotid with a string sign. MRI of the brain shows an acute watershed infarct in the right frontal lobe, centrum semiovale, chronic left cerebral infarction. No abnormal enhancement. PHYSICAL EXAMINATION: VITAL SIGNS: 36.9, 84, 20, 119/63, 95% on room air. The patient is awake, alert. There is some minor right/left confusion, although she accurately ident ifies the right hand. Interlocking fingers are unable to be performed. The patient fills in the ent ibeth right and left side of the clock. The patient is alert and oriented x3 without any aphasia. The re are no carotid bruits. No heart murmurs. Heart is regular rate and rhythm. Abdomen is soft and nontender. Pupils are equal, I had difficulty visualizing the optic nerves. There are normal velazquez . No visual extinction. Normal facial sensation. There may be a mild flattening of the left nasola bial fold. Right upper and right lower seemed full. Left upper about 4-4+ with a left drift and dec reased left rapid alternating movements. Left lower extremity may be minorly weak. [id number] i s mildly clumsy on the left. [id number] is clumsy on the left. There is intact to light touch. T here is no double simultaneous extinction. Reflexes are symmetric. Toes are downgoing. Gait was no t tested. IMPRESSION AND PLAN: Presumed left carotid occlusion. Symptomatic high-grade stenosis of the right internal carotid artery. The ischemia could be contributed to or potentially caused by low blood pre ssure. Recommend allowing her blood pressure to run somewhat high at least 140/80. Agree with dual antiplatelet therapy with aspirin and Plavix. Check orthostatic blood pressure and pulse to exclude orthostasis. Improved control of lipids if possible. Smoking cessation is advised. Recommend a Zio patch as an outpatient simply to see if there is intermittent atrial fibrillation, which may have be en a prior indication for her anticoagulation. Review prior indications for anticoagulation. Defer the timing of the right carotid endarterectomy to vascular surgery, although the patient is sym ptomatic. We will sign off. Have the patient see us in followup post discharge. Job ID: [id number]
[2021-05-20] MEDS: NICOTINE 21 MG/24 HR TDSY TD SCH (08:13)
[2021-05-20] MEDS: ASPIRIN 81 MG ECTAB PO SCH (08:14)
[2021-05-20] MEDS: CLOPIDOGREL BISULFATE 75 MG TAB PO SCH (08:14)
[2021-05-20] MEDS: METOPROLOL SUCC 25MG EXT REL TAB PO SCH ×2 (08:14→20:49)
[2021-05-20] MEDS: CITALOPRAM 20 MG TAB PO SCH (08:14)
[2021-05-20 09:05] LABS: Hematocrit (blood only) 38.3 % (37-47); Hemoglobin 12.2 g/dL (12.0-16.0); Mean Corpuscular Hemoglobin 27.9 pg (25-34); Mean Corpuscular Hgb Conc 31.9 g/dL (32-36); Mean Corpuscular Volume 87.6 fL (80-100); Platelet Count 246 K/uL (130-400); RDW Standard Deviation 48.2 fL (36.4-46.3); Red Blood Count 4.37 M/uL (4.2-5.4); White Blood Count 7.61 K/uL (4.8-10.8)
[2021-05-20 09:27] LABS: ALC (manual) 0.66 K/uL (1.2-3.4); ANC (manual) 6.35 K/uL (1.4-6.5); Basophils # (manual) 0.07 K/uL (0-0.2); Basophils % (manual) 0.9 %; Eosinophils # (manual) 0.07 K/uL (0-0.5); Eosinophils % (manual) 0.9 %; Lymphocytes # (manual) 0.66 K/uL (1.2-3.4); Lymphocytes % (manual) 8.7 %; Monocytes # (manual) 0.46 K/uL (0.11-0.59); Monocytes % (manual) 6.1 %; Neutrophils # (manual) 6.35 K/uL (1.4-6.5); Neutrophils % (manual) 83.4 %; RBC Morphology Unremarkable
[2021-05-20 09:36] LABS: BUN Creatinine Ratio 19.4 (10-20); Calcium 8.7 mg/dl (8.5-10.1); Creatinine Clr Calc Pharmacy 81.7 ml/min; Est GFR (African American) 105.1 ml/min; Est GFR (Non-African American) 90.7 ml/min; Potassium 3.7 mmol/L (3.5-5.1)
--- NOTE | 2021-05-20 17:44 | Hospitalist Progress Note ---
Date of Service May 20, 2021 Assessment & Plan (1) Right leg weakness: (2) Carotid stenosis, bilateral: Plan: Acute CVA, right frontal lobe Per MORENA nguyen's notes: -Patient presenting from home with reports of headache, lightheadedness, dizziness, right leg weakness -in the ED, head CT shows evidence of old left cerebral hemisphere infarcts -Head/neck CTA shows R ICA stenosis 80% and L ICA string sign -Vascular surgery consult, case discussed with Tomasa Lilly PA-C - Dr. Singh feels as though left ICA is totally occluded and would not benefit from surgical intervention, patient will need follow-up with their office in 6 months for right ICA stenosis follow-up -Given acute symptoms, check brain MRI -likely will need ASA and Plavix, awaiting brain MRI results -Continue statin -Neurology consult, input appreciated -Echo -No indication to continue Coumadin at this time, monitor on telemetry for evidence of atrial fibrillation Brain MRI 1. Small acute watershed infarcts of the right frontal lobe centrum semiovale. 2. No acute intracranial hemorrhage. 3. Age-related involutional changes with chronic microvascular ischemic disease. 4. Chronic left cerebral infarcts. 5. No abnormal enhancement. Left-sided weakness significantly improved, almost resolved Continue aspirin and Plavix, continue usual high-dose statin Coumadin has been discontinued Neurologist consulted-we will need to maintain high normal blood pressure in light of bilateral carotid stenosis, will need outpatient Zio patch placement to rule out underlying A. fib PT and OT recommending inpatient rehab Smoking cessation Bilateral carotid artery stenosis Aspirin, Plavix, statin Follow-up with Dr. 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 Will need to follow-up closely with ENT (3) HTN (hypertension): Plan: will need to maintain high normal blood pressure in light acute CVA in the settingof bilateral carotid stenosis Continue metoprolol but reduce to 25 mg twice daily With amlodipine and chlorthalidone for now (4) DVT prophylaxis: Plan: -SCDs for now Reevaluate for heparin subcutaneous daily (5) Acute CVA (cerebrovascular accident): Plan: Management per above Plan: PT OT evaluation pending May need inpatient rehab plan of care discussed with patient and her sisters in detail and at length all questions answered They are understanding, agreeable, comfortable with the plan of care Admission and Anticipated Discharge Date Admission Date: May 18, 2021 Subjective Follow-up for acute CVA, etc. Seen sitting up in bed, comfortable, in good spirits Sisters visiting States she continues to feel better Left sided weakness continues to improve No headache, dizziness, chest pain, shortness of breath Denies other symptoms Review of Systems Review of Systems: All negative except for above Physical Exam Physical Exam: General- oriented x 3, not in distress, speaks in sentences with no effort or accessory muscle use Eyes- anicteric Neck- no JVD Lungs- clear breath sounds bilaterally, no rales/wheezes Heart- normal rate, regular rhythm; no murmurs Abdomen- normal bowel sounds, nondistended, soft, nontender Extremities- no pretibial edema, no calf tenderness Neuro- alert, oriented x 3; positive mild left facial droop, motor strength 5/5 on all extremities, sensation 100% on all extremities no new gross focal neurologic deficits Skin- warm & dry Results & Data Results & Data ([facility]) Vital Signs (Past 12 Hours) Vital Signs Temp Pulse Pulse Resp BP Pulse Ox 05/20/21 15:35 78 05/20/21 15:07 37.3 C 75 24 166/69 H 98 05/20/21 12:19 37.1 C 64 20 120/66 94 05/20/21 08:00 66 05/20/21 07:29 37.3 C 64 20 131/70 93 all noted and reviewed including below
[2021-05-20] MEDS: ATORVASTATIN 40 MG TAB PO SCH (20:49)
[2021-05-21 07:17] LABS: Basophils # (auto) 0.02 K/uL (0-0.2); Basophils % (auto) 0.3 %; Eosinophils # (auto) 0.22 K/uL (0-0.5); Eosinophils % (auto) 2.9 %; Hematocrit (blood only) 35.6 % (37-47); Hemoglobin 11.6 g/dL (12.0-16.0); Immature Granulocytes # (auto) 0.02 K/uL (0.00-0.02); Immature Granulocytes % (auto) 0.3 %; Lymphocytes # (auto) 1.53 K/uL (1.2-3.4); Lymphocytes % (auto) 19.9 %; Mean Corpuscular Hemoglobin 28.2 pg (25-34); Mean Corpuscular Hgb Conc 32.6 g/dL (32-36); Mean Corpuscular Volume 86.6 fL (80-100); Mean Platelet Volume 10.9 fL (7.4-10.4); Monocytes # (auto) 0.72 K/uL (0.11-0.59); Monocytes % (auto) 9.4 %; Neutrophils # (auto) 5.18 K/uL (1.4-6.5); Neutrophils % (auto) 67.2 %; Platelet Count 238 K/uL (130-400); RDW Standard Deviation 47.9 fL (36.4-46.3); Red Blood Count 4.11 M/uL (4.2-5.4); White Blood Count 7.69 K/uL (4.8-10.8)
[2021-05-21 07:46] LABS: BUN Creatinine Ratio 20.6 (10-20); Calcium 8.5 mg/dl (8.5-10.1); Creatinine Clr Calc Pharmacy 82.7 ml/min; Est GFR (African American) 105.6 ml/min; Est GFR (Non-African American) 91.2 ml/min; Potassium 3.6 mmol/L (3.5-5.1)
[2021-05-21] MEDS: ASPIRIN 81 MG ECTAB PO SCH (08:09)
[2021-05-21] MEDS: METOPROLOL SUCC 25MG EXT REL TAB PO SCH (08:09)
[2021-05-21] MEDS: CITALOPRAM 20 MG TAB PO SCH (08:09)
[2021-05-21] MEDS: NICOTINE 21 MG/24 HR TDSY TD SCH (08:10)
[2021-05-21] MEDS: CLOPIDOGREL BISULFATE 75 MG TAB PO SCH (08:10)
[2021-05-21] MEDS ORDERED: STROKE PATIENT DISCHARGE STA (11:37)
--- NOTE | 2021-05-21 12:05 | Hospitalist Progress Note ---
Date of Service May 21, 2021 Assessment & Plan (1) Right leg weakness: (2) Carotid stenosis, bilateral: Plan: Acute CVA, right frontal lobe Per MORENA nguyen's notes: -Patient presenting from home with reports of headache, lightheadedness, dizziness, right leg weakness -in the ED, head CT shows evidence of old left cerebral hemisphere infarcts -Head/neck CTA shows R ICA stenosis 80% and L ICA string sign -Vascular surgery consult, case discussed with Tomasa Lilly PA-C - Dr. Singh feels as though left ICA is totally occluded and would not benefit from surgical intervention, patient will need follow-up with their office in 6 months for right ICA stenosis follow-up -Given acute symptoms, check brain MRI -likely will need ASA and Plavix, awaiting brain MRI results -Continue statin -Neurology consult, input appreciated -Echo -No indication to continue Coumadin at this time, monitor on telemetry for evidence of atrial fibrillation Brain MRI 1. Small acute watershed infarcts of the right frontal lobe centrum semiovale. 2. No acute intracranial hemorrhage. 3. Age-related involutional changes with chronic microvascular ischemic disease. 4. Chronic left cerebral infarcts. 5. No abnormal enhancement. Left-sided weakness significantly improved, mostly resolved Continue aspirin and Plavix, continue usual Lipitor 80 mg daily Coumadin has been discontinued Neurologist consulted- will need to maintain blood pressure around 140/80 in light of bilateral carotid stenosis, will need outpatient Zio patch placement to rule out underlying A. fib PT and OT recommending inpatient rehab Smoking cessation Monitor and control lipid levels Follow-up with PCP in 1 week Follow-up with neurologist in 3 to 4 weeks Follow-up with vascular surgery in 6 months for possible intervention of bilateral carotid artery stenosis Bilateral carotid artery stenosis Aspirin, Plavix, statin Follow-up with Dr. 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 Will need to follow-up closely with ENT (3) HTN (hypertension): Plan: will need to maintain blood pressure around 140/80 in light acute CVA in the setting of bilateral carotid stenosis Continue metoprolol but reduce to 25 mg twice daily Discontinued amlodipine and chlorthalidone for now (4) DVT prophylaxis: Plan: -SCDs, frequent ambulation (5) Acute CVA (cerebrovascular accident): Plan: Management per above Plan: Transfer to [facility] for rehab plan of care discussed with patient in detail all questions answered She is understanding, agreeable, comfortable with the plan of care Admission and Anticipated Discharge Date Admission Date: May 18, 2021 Subjective Follow-up for acute CVA, bilateral carotid artery stenosis, etc. Seen sitting up in bed, in good spirits, comfortable, not in distress States she feels much better overall Left-sided weakness mostly resolved Denies any new neurologic deficits Denies dizziness, headache, chest pain, shortness of breath, palpitations No other problems States that she is ready for discharge today to rehab facility Review of Systems Review of Systems: All noted, negative except for above Physical Exam Physical Exam: General- oriented x 3, not in distress, speaks in sentences with no effort or accessory muscle use Eyes- anicteric Neck- no JVD Lungs- clear breath sounds bilaterally, no rales/wheezes Heart- normal rate, regular rhythm; no murmurs Abdomen- normal bowel sounds, nondistended, soft, nontender Extremities- no pretibial edema, no calf tenderness Neuro- alert, oriented x 3; left facial droop improving, motor strength 5/5 in all extremities, sensation 100% all extremities Skin- warm & dry Results & Data Results & Data ([facility]) Vital Signs (Past 12 Hours) Vital Signs Temp Pulse Resp BP Pulse Ox 05/21/21 11:08 37.7 C H 58 L 24 151/71 H 97 05/21/21 07:26 37.1 C 56 L 22 142/81 H 95 05/21/21 04:00 37.2 C 61 20 144/74 H 92 all noted and reviewed including below
--- NOTE | 2021-05-21 12:13 | Discharge Summary ---
Date of Service May 21, 2021 Admission HPI Per Admitting Provider 66-year-old female with PMH dyslipidemia, tobacco abuse disorder, history of CVA, HTN, anticoagulant Coumadin, and other problems to below who presents the ED for evaluation of lightheadedness, dizziness, difficulty ambulating. Per neurology note from 2000, she had a left hemisphere stroke and she had intracranial stenosis in the left internal carotid and was placed on Coumadin. Patient was lost to follow-up with neurology and has remained on Coumadin since that time. On 05/12, patient was seen in the ENT clinic for evaluation of voice hoarseness. Lesion was noted concerning for malignancy and direct laryngoscopy and biopsy was recommended. Patient is on Coumadin however declined Lovenox bridge as recommended by [facility] clinic, therefore Coumadin has been on hold since 05/12. Patient reports she developed a headache shortly after the ENT clinic eval. she also reports lightheadedness and dizziness with standing. A couple of days past and she reports that she noted that she was leaning to the right while walking and began dragging her right leg. Patient was scheduled for direct laryngoscopy today however given the aforementioned symptoms, presented to the ED for further evaluation. Patient denies chest pain or shortness of breath. No abdominal pain, nausea, vomiting, diarrhea. Denies any other recent illnesses, fevers, chills. No urinary symptoms. In the ED, head CT is negative for acute findings however shows old left cerebral hemisphere infarcts. Head and neck CTA shows severe atherosclerotic changes of both carotid arteries. Labs are unremarkable, patient is hemodynamically stable. Admission Exam Per Admitting Provider Constitutional: WD/WN, vitals as above Eyes: PERRL, conjunctivae normal, anicteric sclerae ENMT: external ear and nose normal, oropharynx normal Respiratory: normal respiratory effort, lungs clear to auscultation Cardiovascular: Rate/Rhythm: regular rate and regular rhythm Vessels: normal peripheral pulses Extremities: no edema Gastrointestinal (Abdomen): normal bowel sounds, soft, nontender, no hepatosplenomegaly Musculoskeletal: Extremities: no cyanosis and no clubbing Skin: RLE weakness 4/5 Neurologic: PERRL, EOMI, accommodation nl, no face palsy, no dysarthria moves all extremities; not confused Motor/Sensory: no pronator drift Coordination: + abnormal jhgt-ro-gaaw test (difficulty with right heel to left lnua); normal ebacmp-gb-swar test Psychiatric: A+Ox3, euthymic affect Principal Diagnosis Acute cerebrovascular accident, right frontal lobe Bilateral carotid artery stenosis Discharge Exam General- oriented x 3, not in distress, speaks in sentences with no effort or accessory muscle use Eyes- anicteric Neck- no JVD Lungs- clear breath sounds bilaterally, no rales/wheezes Heart- normal rate, regular rhythm; no murmurs Abdomen- normal bowel sounds, nondistended, soft, nontender Extremities- no pretibial edema, no calf tenderness Neuro- alert, oriented x 3; positive mild left facial droop, motor strength 5/5 on all extremities, sensation 100% on all extremities no new gross focal neurologic deficits Skin- warm & dry Discharge Data Allergies Allergy/AdvReac Type Severity Reaction Status Date / Time No Known Drug Allergies Allergy Unknown ` Verified 05/18/21 11:33 Consultations 05/18/21 12:55 ED Decision to Admit Stat 05/18/21 19:36 Consult Neurology Routine Consult Vascular Surgery Routine Ordered Studies 05/18/21 10:19 CT angio head w con Stat FINDINGS: Encephalomalacia within the left frontal and left parietal lobes consistent with old infarcts. The distal vertebral arteries and basilar artery are widely patent. The bilateral ACAs, MCAs, and stock control clerk show no significant stenosis, occlusion, aneurysm. The major dural venous sinuses appear patent. Mild calcified plaque within the right carotid siphon without significant stenosis. There is only a trickle of contrast identified within the left intracranial internal carotid artery. There is reconstitution of flow within the supraclinoid left ICA likely due to retrograde flow from the lummi of Richardson. These findings favor chronic critical stenosis within the visualized left internal carotid artery given the associated old left-sided infarcts. IMPRESSION: 1. There is only a trickle of contrast identified within the left intracranial internal carotid artery. There is reconstitution of flow within the supraclinoid left ICA likely due to retrograde flow from the lummi of Richardson. These findings favor chronic critical stenosis within the visualized left internal carotid artery given the associated old left-sided infarcts. 2. No significant stenosis, occlusion, or aneurysm within the bilateral ACAs, MCAs, or stock control clerk. CT angio neck with con Stat Findings: There is a 15 mm right lobe thyroid nodule. There are advanced atheromatous changes with carotid bulb calcification. There is a 75% diameter narrowing at the level the carotid bulb. There is a 67% stenosis of the right internal carotid artery origin. There is extensive atheromatous plaque within the cervical internal carotid. There is an 80% diameter narrowing of the internal carotid 2 cm distal to the bifurcation. There are moderate atheromatous changes within the left common carotid artery. There is a subtotal occlusion of the left internal carotid artery with a string sign. There is no evidence of hemodynamically significant vertebral stenosis. There is no evidence of vertebral dissection. IMPRESSION: 1. Severe atherosclerotic changes involving both carotids 2. Subtotal occlusion of the left internal carotid artery with a string sign 3. Multifocal right internal carotid artery stenosis measuring a maximum of approximately 80% 2 cm distal to the bifurcation 4. 75% diameter narrowing of the right carotid bulb CT head/brain wo con Stat 05/18/21 14:04 MR brain wo/w con Stat FINDINGS: Multifocal areas of restricted diffusion are noted within the centrum semiovale of the right frontal lobe measuring up to 1.8 cm with decreased signal on ADC map compatible with acute watershed infarcts. No acute territorial infarct. Encephalomalacia and gliosis of the left frontal and parietal lobes compatible with areas of chronic infarct. Motion degraded exam. No acute intracranial hemorrhage, midline shift, abnormal extra-axial collection, hydrocephalus or intracranial mass. No abnormal enhancement. Mild involutional changes. Mild to moderate T2/FLAIR hyperintensities throughout the white matter are suggestive of chronic microvascular ischemic disease. Cerebral venous sinuses appear patent. The major arterial flow voids are suboptimally visualized secondary to motion artifact and are better evaluated on the CTA studies of same day. Prior bilateral lens repair. Unremarkable skull and soft tissues. IMPRESSION: 1. Small acute watershed infarcts of the right frontal lobe centrum semiovale. 2. No acute intracranial hemorrhage. 3. Age-related involutional changes with chronic microvascular ischemic disease. 4. Chronic left cerebral infarcts. 5. No abnormal enhancement. Hospital Course (1) Acute CVA (cerebrovascular accident): Acute CVA, right frontal lobe Per MORENA nguyen's notes: -Patient presenting from home with reports of headache, lightheadedness, dizziness, right leg weakness -in the ED, head CT shows evidence of old left cerebral hemisphere infarcts -Head/neck CTA shows R ICA stenosis 80% and L ICA string sign -Vascular surgery consult, case discussed with Tomasa Lilly PA-C - Dr. Singh feels as though left ICA is totally occluded and would not benefit from surgical intervention, patient will need follow-up with their office in 6 months for right ICA stenosis follow-up -No indication to continue Coumadin at this time, monitor on telemetry for evidence of atrial fibrillation Brain MRI 1. Small acute watershed infarcts of the right frontal lobe centrum semiovale. 2. No acute intracranial hemorrhage. 3. Age-related involutional changes with chronic microvascular ischemic disease. 4. Chronic left cerebral infarcts. 5. No abnormal enhancement. Echocardiogram: No significant valvular pathology Interatrial septum is intact, no evidence for ASD Borderline concentric LVH Ejection fraction 60 to 65% Neurologist consulted Placed on aspirin, Plavix, Lipitor continued Also, acute CVA may have been contributed by low blood pressure, hence amlodipine plus chlorthalidone discontinued, metoprolol reduced Systolic blood pressure remained in the 130s to 140s while admitted Left-sided weakness significantly improved, mostly resolved, left-sided facial droop also improving Discharge plan: Continue aspirin and Plavix, continue usual Lipitor 80 mg daily (Coumadin has been discontinued, not indicated at this point) will need to maintain blood pressure around 140/80 in light of bilateral carotid stenosis, will need outpatient Zio patch placement to rule out underlying A. fib PT and OT recommending inpatient rehab Smoking cessation Monitor and control lipid levels Follow-up with PCP in 1 week Follow-up with [facility] neurologist Dr. Anamaria Vargas in 3 to 4 weeks Follow-up with vascular surgery Dr. Gus Singh in 6 months for possible intervention of bilateral carotid artery stenosis Bilateral carotid artery stenosis Aspirin, Plavix, statin Follow-up with Dr. 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 Will need to follow-up closely with ENT (2) Carotid stenosis, bilateral: Aspirin, Plavix, statin Follow-up with Dr. Rivero in 6 months for possible intervention (3) HTN (hypertension): will need to maintain blood pressure around 140/80 in light acute CVA in the setting of bilateral carotid stenosis Continue metoprolol but reduce to 25 mg twice daily Discontinued amlodipine and chlorthalidone for now (4) Lesion of vocal cord: Biopsy postponed secondary to acute CVA Will need to follow-up closely with ENT in 1 month (5) DVT prophylaxis: -SCDs, frequent ambulation Transfer to [facility] for rehab plan of care discussed with patient in detail all questions answered She is understanding, agreeable, comfortable with the plan of care Total Time Total Time Spent Total Time Spent (In Minutes): 50 minutes Discharge Plan Discharge Items Patient Disposition: Transfer Inpatient Rehab Fac Reason For Visit: STROKE Discharge Diagnosis: Acute cerebrovascular accident Bilateral carotid artery stenosis Activity: As commented below Activity Comment: Per physical therapy and Occupational Therapy Driving/Machine Use: No driving until reevaluated and allowed by primary care physician Non-emergency contact: Primary Care Provider, Surgeon and Neurologist Call non-emergency contact if: you have any medication questions, your symptoms worsen, your pain is not controlled, your pain is worsening, your pain is unusual for you and your pain is concerning for you Follow-up/Referrals: Jason Donahue MD [Primary Care Provider] - Anamaria Vargas MD [Physician] - Gus Singh MD [Physician] - 11/14/21 1:00 pm (1 PM ULTRASOUND [address] SINGH ) Diet: Heart Healthy Addtl Attending Provider Instructions: Monitor blood pressure. Avoid hypotension in light of recent CVA and bilateral carotid artery stenosis. Please refer to accompanying discharge summary for further details. Pending Studies at Discharge: No Stand-Alone Forms: My [employer] Skilled Items Patient informed of condition?: Yes DNR: No Discharge Level of Care: Acute rehab Communicable Disease: No Discharge Prognosis: Stable Lines: None Urinary Catheter: No Medications and DC Order Prescriptions: New nicotine [Nicoderm CQ] 21 mg/24 hr Patch 24 Hour 21 mg transdermal QAM Qty: 14 RF: 0 clopidogrel 75 mg Tablet 75 mg PO QAM Qty: 30 RF: 2 metoprolol succinate 25 mg Tablet Extended Release 24 Hr 25 mg PO BID Qty: 60 RF: 2 aspirin 81 mg Tablet,Delayed Release (Dr/Ec) 81 mg PO QAM Qty: 30 RF: 2 Continued atorvastatin 80 mg tablet 80 mg PO PM RF: 0 citalopram 10 mg tablet 10 mg PO QAM RF: 0 temazepam 15 mg capsule 15 mg PO HS RF: 0 albuterol sulfate 90 mcg/actuation HFA aerosol inhaler 1 puff INHALATION QID RF: 0 Discontinued warfarin 7.5 mg tablet 3.75 - 7.5 mg PO QAM RF: 0 metoprolol succinate 100 mg tablet extended release 24 hr 100 mg PO BID RF: 0 amlodipine 10 mg tablet 10 mg PO QAM RF: 0 hydrochlorothiazide 25 mg tablet 25 mg PO QAM RF: 0 Discharge Orders: Discharge Order (Routine); Ordered 05/21/21 Ordered By: Lewis Wilkins Admission Data Admit Date/Time: 05/18/21 13:13 Attending Provider: Lewis Wilkins Admit Provider: Lewis Wilkins Primary Care Provider: Jason Donahue Other Providers: Lewis Wilkins ; Anamaria Vargas ; Gus Singh ; [facility] ; [facility]
== END 2021-05-21 12:52 | DRG 65 ==
LOC: ED 09:16 → EDINP 13:13 → 2S 13:14

== ENCOUNTER 2022-07-25 05:17 | Inpatient (IN) ==
--- NOTE | 2022-07-13 11:03 | PAT Medication Instructions ---
Medication Instructions Date of Service July 13, 2022 Home Medications Medication Instructions Recorded aspirin 81 mg tablet,delayed 81 mg PO QAM #30 tabs 05/21/21 release clopidogrel 75 mg tablet 75 mg PO QAM #30 tabs 05/21/21 metoprolol succinate 25 mg 25 mg PO BID #60 tabs 05/21/21 tablet,extended release 24 hr nicotine 21 mg/24 hr daily 21 mg transdermal QAM #14 ea 05/21/21 transdermal patch (Nicoderm CQ) albuterol sulfate 90 mcg/actuation aerosol inhaler 1 puff inhalation QID PRN atorvastatin 80 mg tablet 80 mg PO HS citalopram 10 mg tablet 10 mg PO QAM aspirin 81 mg tablet,delayed release 81 mg PO QAM clopidogrel 75 mg tablet 75 mg PO QAM metoprolol succinate 25 mg tablet,extended release 24 hr 25 mg PO BID nicotine 21 mg/24 hr daily transdermal patch (Nicoderm CQ) 21 mg transdermal QAM cholecalciferol (vitamin D3) 25 mcg (1,000 unit) capsule (Vitamin D3) 25 mcg PO QAM lisinopril 40 mg tablet 40 mg PO QAM temazepam 15 mg capsule 15 mg PO HS PRN warfarin 7.5 mg tablet 3.75 mg PO UD warfarin 7.5 mg tablet 7.5 mg PO UD ASK your prescriber and surgeon aspirin 81 mg tablet,delayed release 81 mg PO QAM clopidogrel 75 mg tablet 75 mg PO QAM nicotine 21 mg/24 hr daily transdermal patch (Nicoderm CQ) 21 mg transdermal QAM (do not apply on or near surgical site) warfarin 7.5 mg tablet 3.75 mg PO UD warfarin 7.5 mg tablet 7.5 mg PO UD DO NOT take the morning of surgery cholecalciferol (vitamin D3) 25 mcg (1,000 unit) capsule (Vitamin D3) 25 mcg PO QAM lisinopril 40 mg tablet 40 mg PO QA Take morning of surgery With a small sip of water, OTHERWISE NOTHING TO EAT OR DRINK AFTER MIDNIGHT: albuterol sulfate 90 mcg/actuation aerosol inhaler 1 puff inhalation QID PRN(use if needed; please bring with you to hospital day of surgery if possible) citalopram 10 mg tablet 10 mg PO QAM metoprolol succinate 25 mg tablet,extended release 24 hr 25 mg PO BID Take evening before surgery albuterol sulfate 90 mcg/actuation aerosol inhaler 1 puff inhalation QID PRN(if needed) atorvastatin 80 mg tablet 80 mg PO HS metoprolol succinate 25 mg tablet,extended release 24 hr 25 mg PO BID temazepam 15 mg capsule 15 mg PO HS PRN(if needed) Other Notes If you have any questions please call us at [phone] or [phone] or [phone] or [phone]
--- NOTE | 2022-07-19 13:23 | Anesthesiology Consultation ---
Date of Service July 19, 2022 Assessment & Plan (1) Encounter for pre-operative examination: - check coags STAT am DOS. - Case discussed with Dr. Addi Torres who advised contacting [facility] ENT regarding any concerns with general anesthesia. ENT response 07/20/22 [facility]: "No concerns for gen anes or intubation." - vocal cord lesion, monitored by [facility] ENT. 02/15/22: "...recheck of her larynx. 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 She quit smoking in May of 2021. When I saw her last in October of 2021 she had a new left true cord polyp. She elected to observe this. Incidentally she had a CT scan of her head recently for dizziness and falling. This noted a right- sided retropharyngeal node. 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 Redemonstrated right greater than left retropharyngeal lymph nodes. 2. Minimal asymmetry and involving the right posterior nasopharyngeal soft tissues with an area of tonsillar cystic change versus indeterminate nasopharyngeal lesion measuring 0.8 cm as described above. 3. Indeterminate soft tissue nodule within the right paraglottic space measuring 0.7 cm...We were able to perform a good biopsy in the office today. The results of this ended up being benign and I called and notified her of it. She does note to follow-up for any new symptoms..." Chart Review Chart Review: Acceptable Risk for Surgery and Patient seen in Pre Admission Testing Teaching & Discussion Pre-Anesthesia Teaching/Discussion Notes: Instructed NPO after midnight before surgery, except medications with 15 cc of water. Medication instructions provided according to the PAT guidelines. History Surgery Operation Date: 07/25/22 08:00 Proposed Procedures p Transcarotid Artery Revascularization - Gus Singh MD Height/Weight Height: 5 ft 3 in Weight: 77.9 kg Allergies Allergy/AdvReac Type Severity Reaction Status Date / Time No Known Drug Allergies Allergy Unknown ` Verified 07/13/22 07:59 Medications Home Medications Medication Instructions Recorded Confirmed Last Taken albuterol sulfate 90 mcg/actuation 1 puff inhalation QID PRN 05/18/21 07/13/22 Unknown aerosol inhaler Shortness Of Breath atorvastatin 80 mg tablet 80 mg PO HS 05/18/21 07/13/22 05/17/21 citalopram 10 mg tablet 10 mg PO QAM 05/18/21 07/13/22 05/18/21 aspirin 81 mg tablet,delayed 81 mg PO QAM #30 tabs 05/21/21 07/13/22 Unknown release clopidogrel 75 mg tablet 75 mg PO QAM #30 tabs 05/21/21 07/13/22 Unknown metoprolol succinate 25 mg 25 mg PO BID #60 tabs 05/21/21 07/13/22 Unknown tablet,extended release 24 hr nicotine 21 mg/24 hr daily 21 mg transdermal QAM #14 ea 05/21/21 07/13/22 Unknown transdermal patch (Nicoderm CQ) cholecalciferol (vitamin D3) 25 25 mcg PO QAM 07/13/22 07/13/22 Unknown mcg (1,000 unit) capsule (Vitamin D3) lisinopril 40 mg tablet 40 mg PO QAM 07/13/22 07/13/22 Unknown temazepam 15 mg capsule 15 mg PO HS PRN Sleep 07/13/22 07/13/22 Unknown warfarin 7.5 mg tablet 3.75 mg PO UD 07/13/22 07/13/22 Unknown warfarin 7.5 mg tablet 7.5 mg PO UD 07/13/22 07/13/22 Unknown Past Medical History Medical History (Updated 07/19/22 @ 14:44 by Diane Sorensen PA-C) Carotid stenosis, bilateral GERD (gastroesophageal reflux disease) controlled, stable per pt History of CVA (cerebrovascular accident) 05/21/21, brought to [facility], weakness on rt and lt sides of body HLD (hyperlipidemia) HTN (hypertension) controlled, stable per pt Lesion of vocal cord see S ENT consult notes, biopsy benign and pt advised to f/u prn Patient denies h/o seizures, heart attack, heart failure, DM, blood clots or blood transfusions. Exercise / Class Metabolic Activity II 4-5 Yardwork/Stairs/Walk up hill (denies CP or SOB with 1 FOS) Past Family History Family History Father Heart disease Past Surgical History Surgical History History of cataract surgery rt/lt History of open reduction and internal fixation (ORIF) procedure rt. ankle Hx of colonoscopy Past Anesthesia History No Family Hx of Anesthesia Complications and Other (awareness during colonoscopy) History of PONV No Hx of PONV and No Hx of Motion Sickness Social History Smoking Status: Former smoker tobacco type: cigarettes Smoking cigarettes per day: 10 Do You Dip or Chew Tobacco: No Smoking End Date: quit 06/2022 Hx Alcohol Use: Yes (quit 10-11 years ago) Hx Substance Use: No substance use type: does not use Review of Systems Patient denies chest pain, shortness of breath, dyspnea on exertion, snoring, witnessed apneas, fever, chills, cough, wheezing, or palpitations. Physical Exam Vital Signs Vitals BP 104/66 P 73 TEMP 99 SP02 97% on RA RESP 18 Physical Full cervical extension range of motion without pain TMD 3.5 finger breadths Mallampati Score 3 Dentition: edentulous, full upper and lower dentures Lungs: normal respiratory effort. Clear throughout to auscultation, no adventitious breath sounds Cardiac: regular rate and rhythm, no murmurs noted Carotid arteries: negative bruit bilat Lab Results Anesthesia Preop Results Results Anesthesia Widget: WBC 7.98 K/ul (4.8-10.8) 07/19/22 Hgb 12.0 g/dl (12.0-16.0) 07/19/22 Hct 36.9 % (34.1-44.9) 07/19/22 Plt 238 K/uL (130-400) 07/19/22 Na 139 mmol/L (136-145) 07/19/22 K 3.7 mmol/L (3.5-5.1) 07/19/22 Cl 104 mmol/L (98-107) 07/19/22 CO2 27 mmol/L (21-32) 07/19/22 BUN 14 mg/dl (6-23) 07/19/22 Creat 0.84 mg/dl (0.6-1.2) 07/19/22 Glucose Level 123 mg/dl (70-99(Fasting)) H 07/19/22 PT 29.4 Seconds (9.0-12.0) H 07/19/22 PTT 38.9 Seconds (21.0-31.0) H 07/19/22 INR 2.9 (0.9-1.1) H 07/19/22 Blood Type A Positive 07/19/22 Antibody Screen NEGATIVE 07/19/22 Testing Electrocardiogram Date: 07/19/22 NSR, rate 63 bpm Chest X-Ray Date: 07/19/22 No lines and tubes are seen. The cardiomediastinal silhouette is normal. The lungs are clear. No evidence of pleural effusion or pneumothorax. IMPRESSION: No acute chest disease. Echocardiogram Date: 05/19/21 EF 60-65% Borderline cLVH Interatrial septum intact with no evidence for an atrial septal defect No significant valvular pathology Other Testing Neck CTA 06/28/22 1. There is advanced atherosclerotic plaque in the left carotid bulb with near complete to complete thrombosis at the origin of the left internal carotid artery. 2. The remainder of the left internal carotid artery is diminutive with thready flow ("string sign") to the skull base. This is similar to previous. 3. Advanced atherosclerotic plaque is seen in the right carotid bulb. There is greater than 90% stenosis at the origin of the right internal carotid artery. There is a second focus of high-grade stenosis approximately 2 cm above the right carotid bifurcation. 4. The vertebral arteries are patent bilaterally. COVID-19 Risk Screen Screening Information COVID-19 Screen Date: 07/19/22 Exposure 21 Days Family/Household +COVID Last 21 Days: No Exposure 10 Days Any COVID Exposure Last 10 Days: No Symptoms Last 10 Days Experienced COVID Sx Last 10 Days: No + COVID 0-90 Days COVID + in Last 0-90 Days: No
[2022-07-25] MEDS ORDERED: SODIUM CHLORIDE 0.9% 1000ML IV SCH (06:00)
[2022-07-25] MEDS ORDERED: ceFAZolin 1000MG 1,000 MG/7.5 ML SYR IV SCH (06:00)
[2022-07-25] MEDS ORDERED: fentaNYL citrate 100 MCG/2 ML VIAL ONE (07:00)
[2022-07-25] MEDS ORDERED: ROCURONIUM BROMIDE 10 MG/ML 5 ML VIAL IV ONE (07:00)
[2022-07-25] MEDS ORDERED: ONDANSETRON INJ 2 MG/ML 2 ML VIAL ONE (07:00)
[2022-07-25] MEDS ORDERED: DEXAMETHASONE SOD INJ 4 MG/ML VIAL ONE (07:00)
[2022-07-25] MEDS ORDERED: LIDOCAINE 2% MPF LOCAL 5 ML VIAL INFIL ONE (07:00)
[2022-07-25] MEDS ORDERED: PROPOFOL IV EMULSION 10 MG/ML 20 ML VIAL IV ONE (07:00)
[2022-07-25] MEDS ORDERED: MIDAZOLAM HCL 1 MG/ML 2ML VIAL ONE (07:01)
[2022-07-25] MEDS ORDERED: LIDOCAINE 1% LOCAL 20 ML VIAL ONE (07:16)
[2022-07-25] MEDS ORDERED: BUPIVACAINE 0.5 % 5 MG/1 ML MPF 30ML VIAL ONE (07:16)
[2022-07-25] MEDS ORDERED: HEPARIN (PORCINE) 1000 UNIT/ML 10 ML (CATH LAB USE ONLY) ONE (07:16)
[2022-07-25] MEDS ORDERED: ceFAZolin 330 MG/ML 1 GM VIAL ONE ×2 (07:16→09:34)
[2022-07-25] MEDS ORDERED: EPINEPHrine INJ 1 MG/ML AMP ONE (07:16)
[2022-07-25] MEDS ORDERED: THROMBIN FOR SOLN 20000 UNIT KIT ONE (07:17)
[2022-07-25] MEDS ORDERED: GELATIN SPONGE SZ 100 ONE (07:17)
[2022-07-25] MEDS ORDERED: SUGAMMADEX SODIUM 200 MG/2 ML VIAL IV ONE (07:33)
--- NOTE | 2022-07-25 07:36 | History & Physical Report ---
Date of Service July 25, 2022 History of Present Illness Primary Care Provider: Jason Donahue MD Name: CAREN DIEHL Patient Number: [id number] : 1955 Date of Service: 07/11/2022 Chief Complaint: _Follow-up after CTA HPI: _Ms. Diehl is a middle-aged female who presents to Dr. Singh's vascular surgery clinic today for a follow-up visit after undergoing a CTA of the neck due to significantly worsened right ICA stenosis noted on a recent surveillance ultrasound. Patient has a history of suffering a significant left hemispheric stroke in the remote past, which has left her with some short-term memory problems. For this reason we requested that she bring a family member with her to the appointment today. She does bring her [id number] with her, as her sister is currently in the hospital. Patient denies any new neurological concerns, including amaurosis, new extremity weakness numbness or tingling, new speaking or swallowing problems, new onset confusion, facial droop, other concerns. The neck CTA performed at [facility] on 06/28/2022 confirms over 90% stenosis of her right ICA, and her chronic left ICA occlusion is once again demonstrated. Current Home Meds: (Last Updated 07/11 13:52) albuterol (albuterol CFC free 90 mcg/inh MDI) 2 puff inhaled qid PRN: as needed for wheezing aspirin (aspirin 81 mg oral delayed release tablet) 81 mg PO Daily atorvastatin (atorvastatin 80 mg oral tablet) 80 mg PO qhs cholecalciferol (cholecalciferol 25 mcg (1000 intl units) oral tablet) 25 mcg PO Daily citalopram (citalopram 10 mg oral tablet) 10 mg PO Daily clopidogrel (clopidogrel 75 mg oral tablet) 75 mg PO Daily diclofenac topical (diclofenac 1% topical gel) 1 appl topical qid PRN: Pain lisinopril (lisinopril 40 mg oral tablet) 40 mg PO Daily metoprolol (Metoprolol Succinate ER 25 mg oral tablet, extended release) 12.5 mg PO bid multivitamin with minerals (Airborne oral tablet, chewable) omeprazole (omeprazole 40 mg oral delayed release capsule) TAKE 1 CAPSULE BY MOUTH TWICE PER DAY temazepam (temazepam 15 mg oral capsule) 15 mg PO qhs PRN: as needed for sleep warfarin (warfarin 7.5 mg oral tablet) Allergies and Sensitivities: NKA Past Medical History: Problems: Tobacco user Carotid artery stenosis OBJECTIVE Vitals: Last Updated 07/11/22 13:54 Date Temp BP Location Pulse RR SpO2 Pain 07/11/22 194/72 Right Arm 72 97 0 05/22/22 0 05/22/22 180/76 Right Arm Vital Signs are the last 3 documented. No Orthostatic Data Available Height and Weight: Last Updated 05/22/22 15:03 Date BMI Wt(kg) Wt(lb) Method Ht(cm) (ft-in) Method 05/22/22 76.7 169 Standing Scale 03/13/22 77.7 171 Standing Scale Heights and Weights are the last 3 documented. Physical Exam Constitutional: In general patient is a healthy-appearing well-nourished well- developed middle-aged female in no distress. She is alert and oriented x3, although does occasionally repeat questions. She has no significant focal neurological deficits otherwise. Her heart is regular, her lungs are decreased but clear. Her abdomen is soft nontender with normoactive bowel sounds in all 4 quadrants. Her distal pulses are faintly palpable in the lower extremities ASSESSMENT: _ PLAN: _ 1 ) _severe right ICA stenosis Patient has over 90% stenosis of the right internal carotid artery, which puts her at a significantly increased risk of stroke. She does not have current symptoms, however, we recommend that she undergo surgery due to the severity of her stenosis. The procedures, risks, benefits, and alternatives of carotid endarterectomy as well as transcarotid artery revascularization(TCAR), were disc ussed with the patient. Her [id number] was present as well. Patient elects to proceed with TCAR. The procedure will be scheduled in the next few weeks at the patient's convenience. She is advised to call here with any questions or concerns. A considerable amount of time was spent discussing the procedures and risks with the patient. Thank you for letting us participate in the care of this patient. Signature Line Electronic Signature on File CC: Jason Donahue MD [address] [facility] [id number] * Electronically Reviewed/Signed by: Tomasa Lilly PA-C Author Signature Dt/Tm:07/12/2022 01:50 PM [facility] [address], [address] [place] [address] Electronically Reviewed/Signed by: Gus Singh MD Cosigner Signature Dt/Tm: 07/13/2022 08:18 AM Jacker Feeder [facility] [address], [address] [place] [address] LM Result Type: HVI Outpt Note Date of Service: July 12, 2022 13:42 EDT Authorization Status: Final Author or Import Date: KWABENA Lilly, Tomasa on July 12, 2022 13:50 EDT Verified By: MD Samantha, Gus Us on July 13, 2022 08:18 EDT Encounter info: [id number], [place] [address], Clinic, 07/11/2022 - 07/11/2022 Allergies Allergy/AdvReac Type Severity Reaction Status Date / Time No Known Drug Allergies Allergy Unknown ` Verified 07/25/22 06:28 Home Medications Medication Instructions Recorded Confirmed Type albuterol sulfate 90 mcg/actuation 1 puff inhalation QID PRN 05/18/21 07/25/22 History aerosol inhaler Shortness Of Breath atorvastatin 80 mg tablet 80 mg PO HS 05/18/21 07/25/22 History citalopram 10 mg tablet 10 mg PO QAM 05/18/21 07/25/22 History aspirin 81 mg tablet,delayed 81 mg PO QAM #30 tabs 05/21/21 07/25/22 Rx release clopidogrel 75 mg tablet 75 mg PO QAM #30 tabs 05/21/21 07/25/22 Rx metoprolol succinate 25 mg 25 mg PO BID #60 tabs 05/21/21 07/25/22 Rx tablet,extended release 24 hr nicotine 21 mg/24 hr daily 21 mg transdermal QAM #14 ea 05/21/21 07/25/22 Rx transdermal patch (Nicoderm CQ) cholecalciferol (vitamin D3) 25 25 mcg PO QAM 07/13/22 07/25/22 History mcg (1,000 unit) capsule (Vitamin D3) lisinopril 40 mg tablet 40 mg PO QAM 07/13/22 07/25/22 History temazepam 15 mg capsule 15 mg PO HS PRN Sleep 07/13/22 07/25/22 History warfarin 7.5 mg tablet 3.75 mg PO UD 07/13/22 07/25/22 History warfarin 7.5 mg tablet 7.5 mg PO UD 07/13/22 07/25/22 History Past Med/Surg History Medical History (Updated 07/19/22 @ 14:44 by Diane Sorensen PA-C) Carotid stenosis, bilateral GERD (gastroesophageal reflux disease) controlled, stable per pt History of CVA (cerebrovascular accident) 05/21/21, brought to [facility], weakness on rt and lt sides of body HLD (hyperlipidemia) HTN (hypertension) controlled, stable per pt Lesion of vocal cord see [facility] ENT consult notes, biopsy benign and pt advised to f/u prn Surgical History History of cataract surgery rt/lt History of open reduction and internal fixation (ORIF) procedure rt. ankle Hx of colonoscopy Family History Father Heart disease Social History Smoking Status: Current every day smoker Tobacco Type: Cigarettes Cigarettes Per Day: 10; Smoking End Date: quit 06/2022; Second Hand Exposure: No; Do You Dip or Chew Tobacco: No; Tobacco Cessation Education Requested by Patient: No Hx Alcohol Use: No Hx Substance Use: No Preferred Language: Zambian Communication Ability: Effective Chuck Tender Required: No Beliefs That Will Affect Care: None Current Living Situation: Alone Other Information That Helps Us Care for You: No Feels Safe at Home: Yes Safety Concerns: Feels Safe At This Time Assistive Devices: Walker Review of Systems All systems reviewed & are unremarkable except as noted in HPI & below Results & Data ([facility]) Vital Signs (Past 12 Hours) Vital Signs Temp Pulse Resp BP BP Pulse Ox O2 Del Method 07/25/22 06:40 37.1 C 62 20 161/52 H 176/42 H 97 Room Air
[2022-07-25 08:01] LABS: BUN Creatinine Ratio 21.3 (10-20); Calcium 8.7 mg/dl (8.5-10.1); Creatinine Clr Calc Pharmacy 71.4 ml/min; Est GFR (African American) 95.6 ml/min; Est GFR (Non-African American) 82.5 ml/min; INR 1.1 (0.9-1.1); Partial Thromboplastin Ratio 0.9; Partial Thromboplastin Time 25.9 Seconds (21.0-31.0); Potassium 3.9 mmol/L (3.5-5.1); Prothrombin Time 11.2 Seconds (9.0-12.0)
[2022-07-25] MEDS ORDERED: SURGICEL ABSORB HEMOSTAT 2IN X 14IN TOP ONE (09:29)
[2022-07-25] MEDS ORDERED: GLYCOPYRROLATE 0.2 MG/ML VIAL ONE (09:34)
[2022-07-25] MEDS ORDERED: ePHEDrine sulfate 50 MG/ML SYR ONE (09:34)
[2022-07-25] MEDS ORDERED: ATROPINE SULFATE 1MG/2.5ML SYR ONE (09:34)
--- NOTE | 2022-07-25 09:51 | Procedure Note ---
Angiogram Post Procedure Fluoroscopy Time (minutes): 3.3 Radiation (mGy): 50 Contrast: 25 Post Operative Report Pre & Post Diagnosis Operation Date: 07/25/22 08:00 Pre-Op Diagnosis: Right Carotid Artery Stenosis Post-Op Diagnosis: Right Carotid Artery Stenosis I identified the patient and participated in the time-out.: Yes Procedure Operation Date: 07/25/22 08:00 Actual Procedures p Right Transcarotid Artery Revascularization(Right), Ultrasound localization of left common femoral vein - Gus Singh MD Surgeon Gus Singh MD Financial Systems Analyst Live,PAC Estimated Blood Loss 10 Findings Consistent with Post-Op Diagnosis Specimens none Anesthesia Type General Complications none Disposition Accompanied Patient To Recovery: No Disposition: Recovery Room Indications This is a 67-year-old female was found to have a severe stenosis of her right internal carotid artery. She was a candidate for TCAR. She understood the risk option benefits agreed to have this procedure. Description of Procedure The patient was taken to the operating room and placed in supine position. After general anesthesia was accomplished the groins and right side of the neck and chest were prepped and draped in a sterile manner. Timeout was performed and the patient was identified. A transverse incision was made just above the clavicle between the heads of the sternocleidomastoid. This is carried down to where the common carotid artery was identified. It was isolated. It was slung with umbilical tape. Next the U stitch was placed in the common carotid artery with a 6-0 Prolene suture. Patient was given 8000 heparin at that time. Ultrasound was then used to localize the left common femoral vein. The vein was patent and compressed easily. Under ultrasound guidance the left common femoral vein was punctured and the venous sheath was inserted. This was aspirated and flushed with heparinized saline. ACT at that time was greater than 250. Using micropuncture technique the common carotid artery was punctured. The micro sheath was inserted to 3 cm. Injection was then done showing the bifurcation. There was a significant lesion seen at the origin of the internal carotid artery on the right side. We then inserted the J-wire left and short of the lesion. The micro sheath was removed and the TCAR sheath was inserted. Once it was in place and held against the artery it was sutured to the chest wall and the incision edge. We then flushed the tubing appropriately. The venous return to was clamped onto the TCAR sheath. It was flushed through and then attached to the venous inflow sheath in the left groin. Sheath was checked for flow. After nicely cleared nicely. The common carotid artery was then clamped. No reversal was instituted. We inserted a 4 x 3 balloon backloaded on the wire. The wire was passed through the lesion into the petrous portion of the internal carotid. The 4 balloon was then advanced to the lesion. Lesion was then predilated with a 4 mm balloon. Balloon was removed. We then inserted the 8 x 40 stent. This was deployed across the lesion without difficulty. The catheter was removed. The carotid was allowed to go 2 minutes with flow reversal. Completion angiogram was done at that time which showed just a slight waist still present. We decided to dilate this further. We then inserted a 5 x 3 balloon and did a postdilatation. Again after the dilatation was done and the balloon was removed with allowed 2 minutes of flow reversal to occur. We did do the final shot which showed a approximately 20% residual narrowing at the internal carotid artery. That point the common carotid artery was unclamped. The venous return tubing was clamped and removed from the TCAR sheath. The blood was allowed to flow back into the venous system. Once this was completed the sheath was pulled from the groin and pressure was applied. The TCAR sheath was then removed and the 6-0 Prolene suture securely tied. Hemostasis was noted of the puncture site. Wound was irrigated with Ancef solution. Adequate hemostasis was obtained of the wound. Once this was noted the wound was closed in usual fashion using a 3-0 Vicryl suture for the subcutaneous layer and a 4-0 subcuticular Vicryl suture for the skin edges. Dermabond was used for dressing.The patient left the operation room in satisfactory condition and tolerated the procedure well. All needle and sponge counts were correct at the end of the procedure. Tomasa Lilly Pac assisted due to lack of resident availability and was necessary for positioning, draping, retraction, wound closure deep layers, subcutaneous tissue, and skin closure and was necessary for assisting with the case. I attest to the content of the Intraoperative Record and any orders documented therein. Any exceptions are noted below.
[2022-07-25] MEDS ORDERED: PROMETHAZINE HCL 6.25 MG in SODIUM CHLORIDE 0.9% 50 ML IV PRN (09:56)
[2022-07-25] MEDS ORDERED: ATROPINE SULFATE 0.1 MG/ML 10ML SYR IV PRN (09:56)
[2022-07-25] MEDS ORDERED: fentaNYL citrate 100 MCG/2 ML VIAL IV PRN (09:56)
[2022-07-25] MEDS ORDERED: PHENYLEPHRINE 100MCG/ML 5ML SYR IV PRN (09:56)
[2022-07-25] MEDS ORDERED: LABETALOL HCL IV 5 MG/ML 20ML IV PRN (09:56)
[2022-07-25] MEDS ORDERED: ONDANSETRON INJ 2 MG/ML 2 ML VIAL IV PRN (09:56)
--- NOTE | 2022-07-25 11:01 | Anesthesiology Progress Note ---
Date of Service July 25, 2022 Anesthesia Post Procedure Vital Signs Vital Signs: Temp Pulse Pulse Resp BP BP BP 07/25/22 10:50 36.3 C L 55 L 14 124/42 L 120/47 L 07/25/22 10:40 55 L 17 94/34 L 90/47 L 07/25/22 10:30 63 18 96/38 L 95/54 L 07/25/22 10:20 61 18 101/36 L 100/44 L 07/25/22 10:10 65 17 113/40 L 116/54 L 07/25/22 10:03 36.4 C L 66 16 145/47 H 150/69 H 07/25/22 06:40 37.1 C 62 20 161/52 H 176/42 H Pulse Ox O2 Del Method O2 Flow Rate 07/25/22 10:50 96 Nasal Cannula 2 07/25/22 10:40 94 Nasal Cannula 2 07/25/22 10:30 90 Room Air 07/25/22 10:20 96 Oxymask 5 07/25/22 10:10 100 Oxymask 9 07/25/22 10:03 99 Oxymask 9 07/25/22 06:40 97 Room Air Pain Intensity Right Neck: Pain Intensity: 4 Transfer of Care Handoff Completed per policy Notes Mental Status: alert / awake / arousable Patient Amnestic to Procedure: Yes Nausea / Vomiting: adequately controlled Pain: adequately controlled Airway Patency, RR, SpO2: stable & adequate BP & HR: stable & adequate Hydration State: stable & adequate Anesthetic Complications: no major complications apparent
[2022-07-25] MEDS ORDERED: ALBUTEROL HFA 8 GM INHALER INH PRN (11:31)
[2022-07-25] MEDS ORDERED: TEMAZEPAM 15 MG CAPSULE PO PRN (11:31)
[2022-07-25] MEDS: oxyCODONE/ACETAMINOPHEN 5mg/325mg TAB PO PRN ×4 (12:29→23:24)
[2022-07-25] MEDS: LACTATED RINGER'S 1,000 ML IV SCH ×2 (12:30→20:40)
[2022-07-25] MEDS ORDERED: STAT IV Infusion **Titration per Protocol STA (13:26)
[2022-07-25] MEDS ORDERED: PHENYLEPHRINE HCL 20 MG in DEXTROSE 5% 500 ML IV SCH (13:30)
--- NOTE | 2022-07-25 13:38 | Critical Care Consultation ---
Date of Consultation July 25, 2022 Assessment & Plan (1) Shock circulatory: (2) COPD (chronic obstructive pulmonary disease): (3) Ex-smoker: (4) Dyslipidemia: (5) CVA (cerebral vascular accident): Plan 67-year-old female s/p TCAR right-sided ICU for observation. Patient required low-dose phenylephrine during the procedure and was sent to the ICU on phenylephrine --Shock This is most likely postanesthesia induced Currently on low-dose phenylephrine Continue to keep MAP greater than 65 Patient does have discrepancy between diastolic reading with systolic being in the 110s and diastolic in the mid 30s on the left radial line -- Carotid artery stenosis S/p TCAR 07/25/[address] Singh Continue with neurochecks Pain management Avoid systolic blood pressure greater than 160 --History of CVA Resume Plavix and aspirin on 07/26/2022 -- Dyslipidemia Continue with atorvastatin -- COPD Only on rescue As needed Would recommend PFT as an outpatient --History of hypertension Currently hypotensive Hold all antihypertensive medication --Ex-smoker [id number] smoking history Encouraged to continue abstinence from smoking --Chronic anticoagulation Patient is on warfarin at home On asking the reason why is she is on warfarin, she is not able to answer clearly --Prophylaxis VTE:IPC GI: None Lines: Left radial, peripheral Diet: Cardiac once patient is able to swallow Plan: Chest x-ray 07/19/2022 was clear Monitor H&H Continue with neurochecks Continue with pain management I think there is discrepancy from patient's underlying peripheral vascular disease and the diastolic reading. Would go more with the blood pressure cuff reading Try to keep MAP greater than 65 Vascular surgery on board I have personally spent 45 minutes of critical care time in the direct management of this patient. This is a life/limb threatening event. This includes time spent evaluating patient, direct bedside care, chart review, placing orders, interpretation of diagnostic studies, discussion with consultants, patient, and family members, as well as other required patient management activities. This time is exclusive of all separately billable procedures, and teaching time and separate from and in addition to any other critical care service time. Please note the above document was generated using voice recognition software. It may contain grammatical, syntax or spelling errors. History of Present Illness Attending Physician: Gus Singh MD History of Present Illness 67-year-old female with admitted to hospital post tries carotid artery revascularization Past medical history: COPD, hypertension, CVA, on Coumadin Patient was transferred to the ICU postprocedure as she required phenylephrine At the time of examination patient was on 0.2 of phenylephrine. From her left radial line SBP was in 110s, diastolic was in the 30s with MAP and around 65. Heart rate was low 50s Patient complained of pain at the site of incision. NSAID it is worse when she is coughing. Denies any nausea or vomiting No dizziness No belly pain. No blurry vision Social history: [id number] smoking history, quit 8 weeks ago Allergies Allergy/AdvReac Type Severity Reaction Status Date / Time No Known Drug Allergies Allergy Unknown ` Verified 07/25/22 06:28 Home Medications Medication Instructions Recorded Confirmed Type albuterol sulfate 90 mcg/actuation 1 puff inhalation QID PRN 05/18/21 07/25/22 History aerosol inhaler Shortness Of Breath atorvastatin 80 mg tablet 80 mg PO HS 05/18/21 07/25/22 History citalopram 10 mg tablet 10 mg PO QAM 05/18/21 07/25/22 History aspirin 81 mg tablet,delayed 81 mg PO QAM #30 tabs 05/21/21 07/25/22 Rx release clopidogrel 75 mg tablet 75 mg PO QAM #30 tabs 05/21/21 07/25/22 Rx metoprolol succinate 25 mg 25 mg PO BID #60 tabs 05/21/21 07/25/22 Rx tablet,extended release 24 hr nicotine 21 mg/24 hr daily 21 mg transdermal QAM #14 ea 05/21/21 07/25/22 Rx transdermal patch (Nicoderm CQ) cholecalciferol (vitamin D3) 25 25 mcg PO QAM 07/13/22 07/25/22 History mcg (1,000 unit) capsule (Vitamin D3) lisinopril 40 mg tablet 40 mg PO QAM 07/13/22 07/25/22 History temazepam 15 mg capsule 15 mg PO HS PRN Sleep 07/13/22 07/25/22 History warfarin 7.5 mg tablet 3.75 mg PO UD 07/13/22 07/25/22 History warfarin 7.5 mg tablet 7.5 mg PO UD 07/13/22 07/25/22 History Patient History Medical History (Updated 07/25/22 @ 13:28 by Willi Wheat MD, [facility]) Carotid stenosis, bilateral GERD (gastroesophageal reflux disease) controlled, stable per pt History of CVA (cerebrovascular accident) 05/21/21, brought to [facility], weakness on rt and lt sides of body HLD (hyperlipidemia) HTN (hypertension) controlled, stable per pt Lesion of vocal cord see [facility] ENT consult notes, biopsy benign and pt advised to f/u prn Surgical History History of cataract surgery rt/lt History of open reduction and internal fixation (ORIF) procedure rt. ankle Hx of colonoscopy Family History Father Heart disease Social History Smoking Status: Current every day smoker Tobacco Type: Cigarettes Cigarettes Per Day: 10; Smoking End Date: quit 06/2022; Second Hand Exposure: No; Do You Dip or Chew Tobacco: No; Tobacco Cessation Education Requested by Patient: No Hx Alcohol Use: No Hx Substance Use: No Preferred Language: Swazi Communication Ability: Effective Pacs Administrator Required: No Beliefs That Will Affect Care: None Current Living Situation: Alone Other Information That Helps Us Care for You: No Feels Safe at Home: Yes Safety Concerns: Feels Safe At This Time Assistive Devices: Walker Review of Systems Review of Systems: All systems reviewed & are unremarkable except as noted in HPI & below Physical Exam Physical Exam: Constitutional: No acute distress HEENT: EOMI, PERRLA, right-sided periclavicular incision Respiratory system: Decreased antibiotic, no wheeze, no rhonchi, mild crackles bilateral lower lobes CVS: S1-S2 positive, no murmurs or gallops Abdomen: Soft, nontender, nondistended, positive bowel sounds x4 Extremities: +2 pulses bilaterally radialis/ dorsalis pedis, no cyanosis, no edema Neuro: Awake alert oriented x3, strength 5 out of 5 bilateral upper and lower extremity, cranial nerves II 12 grossly intact Psych: Normal mood and affect G/U: No Wolff Results & Data Results & Data ([facility]) Vital Signs (Past 12 Hours) Vital Signs Temp Pulse Pulse Resp BP BP BP 07/25/22 11:00 54 L 19 163/54 H 163/64 H 07/25/22 10:50 36.3 C L 55 L 14 124/42 L 120/47 L 07/25/22 10:40 55 L 17 94/34 L 90/47 L 07/25/22 10:30 63 18 96/38 L 95/54 L 07/25/22 10:20 61 18 101/36 L 100/44 L 07/25/22 10:10 65 17 113/40 L 116/54 L 07/25/22 10:03 36.4 C L 66 16 145/47 H 150/69 H 07/25/22 06:40 37.1 C 62 20 161/52 H 176/42 H Pulse Ox O2 Del Method O2 Flow Rate 07/25/22 11:00 94 Nasal Cannula 2 07/25/22 10:50 96 Nasal Cannula 2 07/25/22 10:40 94 Nasal Cannula 2 07/25/22 10:30 90 Room Air 07/25/22 10:20 96 Oxymask 5 07/25/22 10:10 100 Oxymask 9 07/25/22 10:03 99 Oxymask 9 07/25/22 06:40 97 Room Air Coding Level of Care Code Critical Care 1st 30-74 mins Diagnoses Shock circulatory R57.9 COPD (chronic obstructive pulmonary disease) J44.9 Ex-smoker Z87.891 Dyslipidemia E78.5 CVA (cerebral vascular accident) I63.9 Time Spent (min) 45
[2022-07-25 14:01] LABS: Albumin Globulin Ratio 1.4 (0.9-2); Albumin Level 3.6 gm/dl (3.4-5.0); BUN Creatinine Ratio 19.3 (10-20); Bilirubin,Total 0.7 mg/dl (0.2-1.0); Calcium 8.2 mg/dl (8.5-10.1); Creatinine Clr Calc Pharmacy 60.9 ml/min; Est GFR (African American) 78.8 ml/min; Globulin 2.5 gm/dl (2.5-4.0); Potassium 3.9 mmol/L (3.5-5.1); Total Protein 6.1 gm/dl (6.0-8.3)
[2022-07-25] MEDS ORDERED: WARFARIN SOD 7.5 MG TAB PO SCH (16:00)
[2022-07-25] MEDS: ceFAZolin 1000MG 1,000 MG/7.5 ML SYR IV SCH (17:03)
[2022-07-25] MEDS ORDERED: ATORVASTATIN 40 MG TAB PO SCH (21:00)
[2022-07-25] MEDS ORDERED: METOPROLOL SUCC 25MG EXT REL TAB PO SCH (21:00)
[2022-07-26] MEDS: ceFAZolin 1000MG 1,000 MG/7.5 ML SYR IV SCH (00:52)
[2022-07-26] MEDS: LACTATED RINGER'S 1,000 ML IV SCH (00:52)
[2022-07-26 05:51] LABS: Prothrombin Time 10.8 Seconds (9.0-12.0)
[2022-07-26 08:17] LABS: Basophils # (auto) 0.02 K/uL (0-0.2); Basophils % (auto) 0.2 %; Eosinophils # (auto) 0.01 K/uL (0-0.50); Eosinophils % (auto) 0.1 %; Hematocrit (blood only) 30.9 % (34.1-44.9); Immature Granulocytes # (auto) 0.03 K/uL (0.00-0.02); Immature Granulocytes % (auto) 0.3 %; Lymphocytes # (auto) 1.67 K/uL (1.2-3.4); Lymphocytes % (auto) 16.4 %; Mean Corpuscular Hemoglobin 28.6 pg (25.0-34.0); Mean Corpuscular Hgb Conc 32.4 g/dL (32.0-36.0); Mean Corpuscular Volume 88.3 fL (80.0-100.0); Mean Platelet Volume 11.5 fL (9.4-12.3); Monocytes # (auto) 0.73 K/uL (0.24-0.82); Monocytes % (auto) 7.2 %; Neutrophils # (auto) 7.72 K/uL (1.4-6.5); Neutrophils % (auto) 75.8 %; Platelet Count 205 K/uL (130-400); RDW Coefficient of Variation 14.7 % (11.5-14.5); RDW Standard Deviation 47.3 fL (36.4-46.3); White Blood Count 10.18 K/ul (4.8-10.8)
[2022-07-26 08:31] LABS: BUN Creatinine Ratio 20.4 (10-20); Calcium 8.5 mg/dl (8.5-10.1); Creatinine Clr Calc Pharmacy 50.3 ml/min; Est GFR (African American) 61.5 ml/min; Est GFR (Non-African American) 53.1 ml/min; Magnesium 1.7 mg/dl (1.7-2.4); Phosphorus 4.2 mg/dl (2.5-4.9); Potassium 4.5 mmol/L (3.5-5.1)
--- NOTE | 2022-07-26 08:34 | Critical Care Progress Note ---
Date of Service July 26, 2022 Assessment & Plan (1) Shock circulatory: (2) COPD (chronic obstructive pulmonary disease): (3) Ex-smoker: (4) Dyslipidemia: (5) CVA (cerebral vascular accident): Plan 67-year-old female s/p TCAR right-sided ICU for observation. Patient required low-dose phenylephrine during the procedure and was sent to the ICU on phenylephrine --Shock --> resolved This is most likely postanesthesia induced Off vasopressors evening of 07/25/2022 -- Carotid artery stenosis S/p TCAR 07/25/[address] Singh Continue with neurochecks Pain management Avoid systolic blood pressure greater than 160 --Bradycardia Patient has history of bradycardia even from before Would recommend to hold metoprolol --History of CVA Resume Plavix and aspirin on 07/26/2022 -- Dyslipidemia Continue with atorvastatin -- COPD Only on rescue As needed Would recommend PFT as an outpatient --History of hypertension Hold all antihypertensive medication --Ex-smoker [id number] smoking history Encouraged to continue abstinence from smoking --Chronic anticoagulation Patient is on warfarin at home On asking the reason why is she is on warfarin, she is not able to answer clearly --Prophylaxis VTE: Warfarin GI: None Lines: peripheral Diet: Cardiac Plan: In/out: +3.1 L, urine output 760 mL Patient is still bradycardic. She is asymptomatic right now. Not on any vasopressors Will recommend to hold metoprolol. Okay to resume lisinopril if the blood pressure starts creeping up. Magnesium being replaced Please note the above document was generated using voice recognition software. It may contain grammatical, syntax or spelling errors.Any formal questions or concerns about the content, text or information contained within the body of this dictation should be directly addressed to the provider for clarification. Admission and Anticipated Discharge Date Admission Date: July 25, 2022 Subjective Patient seen and examined at bedside. No acute distress, no adverse events ov ernight. Pain is better controlled right now. She is complaining of mild headache. No blurry vision Swallowing well. Fair appetite. No nausea or vomiting Denies any shortness of breath, no chest pain Review of Systems Review of Systems: All systems reviewed & are unremarkable except as noted in Subjective Physical Exam Physical Exam: Constitutional: No acute distress HEENT: EOMI, PERRLA, right-sided periclavicular incision Respiratory system: Decreased antibiotic, no wheeze, no rhonchi, mild crackles bilateral lower lobes CVS: S1-S2 positive, no murmurs or gallops Abdomen: Soft, nontender, nondistended, positive bowel sounds x4 Extremities: +2 pulses bilaterally radialis/ dorsalis pedis, no cyanosis, no edema Neuro: Awake alert oriented x3, strength 5 out of 5 bilateral upper and lower extremity, cranial nerves II 12 grossly intact Psych: Normal mood and affect G/U: No Wolff Skin: no rashes, warm and dry Lymphatic: no cervical or axillary lymphadenopathy Results & Data Results & Data ([facility]) Vital Signs (Past 12 Hours) Vital Signs Temp Pulse Resp BP Pulse Ox O2 Del Method 07/26/22 06:30 44 L 13 92 Room Air 07/26/22 06:00 50 L 17 143/58 H 95 Room Air 07/26/22 05:30 59 L 18 96 Room Air 07/26/22 05:00 51 L 18 138/67 95 Room Air 07/26/22 04:30 50 L 17 92 Room Air 07/26/22 04:00 36.8 C 50 L 14 146/60 H 92 Room Air 07/26/22 03:30 47 L 18 93 Room Air 07/26/22 03:00 50 L 24 140/45 L 92 Room Air 07/26/22 02:30 51 L 17 92 Room Air 07/26/22 02:00 52 L 15 142/46 H 91 Room Air 07/26/22 01:30 51 L 15 91 Room Air 07/26/22 01:00 51 L 21 127/43 L 92 Room Air 07/26/22 00:30 51 L 20 92 Room Air 07/26/22 00:00 47 L 18 132/50 L 94 Room Air 07/25/22 23:30 46 L 14 93 Room Air 07/25/22 23:00 46 L 17 132/51 L 93 Room Air 07/25/22 22:30 45 L 18 94 Room Air 07/25/22 22:00 50 L 18 98/64 L 94 Room Air 07/25/22 21:30 44 L 15 93 Room Air 07/25/22 21:00 49 L 14 112/53 L 95 Room Air Laboratory Results 07/26/22 05:25 07/26/22 05:25 Coding Level of Care Code 32126 Subseq Hosp Care Lvl 2 Diagnoses Shock circulatory R57.9 COPD (chronic obstructive pulmonary disease) J44.9 Ex-smoker Z87.891 Dyslipidemia E78.5 CVA (cerebral vascular accident) I63.9
[2022-07-26] MEDS ORDERED: CHOLECALCIFEROL 1,000 UNITS 25 MCG TAB PO SCH (09:00)
[2022-07-26] MEDS ORDERED: lisinopril 40 MG TAB PO SCH (09:00)
[2022-07-26] MEDS ORDERED: CLOPIDOGREL BISULFATE 75 MG TAB PO SCH (09:00)
[2022-07-26] MEDS ORDERED: ASPIRIN 81 MG ECTAB PO SCH (09:00)
[2022-07-26] MEDS ORDERED: NICOTINE 21 MG/24 HR TDSY TD SCH (09:00)
[2022-07-26] MEDS ORDERED: CITALOPRAM 20 MG TAB PO SCH (09:00)
[2022-07-26] MEDS: MAGNESIUM SULFATE / D5W 1 GM/100 ML BAG IV SCH ×2 (09:11→10:55)
[2022-07-26] MEDS: oxyCODONE/ACETAMINOPHEN 5mg/325mg TAB PO PRN (10:59)
--- NOTE | 2022-07-26 12:08 | Electrocardiogram Report ---
Test Reason : Blood Pressure : / mmHG Vent. Rate : 051 BPM Atrial Rate : 051 BPM P-R Int : 146 ms QRS Dur : 082 ms QT Int : 454 ms P-R-T Axes : 051 054 067 degrees QTc Int : 418 ms Sinus bradycardia Otherwise normal ECG When compared with ECG of 19-JUL-2022 13:23, No significant change was found Confirmed by Julian Hanks ([id number]) on 07/26/2022 12:07:56 PM Referred By: Gus Singh Confirmed By:Julian Hanks
--- NOTE | 2022-07-26 12:27 | Surgery Progress Note ---
Date of Service July 26, 2022 Assessment & Plan (1) Carotid stenosis, bilateral: Plan: Pt now s/p R TCAR procedure. Doing well post op day #1. Discussed with Dr Singh. D/C home today. Will follow up in office in 2 weeks. Admission and Anticipated Discharge Date Admission Date: July 25, 2022 Subjective 67 yo f POD #1 after R TCAR, seen in f/u today. Pt admits some discomfort in R neck incision and L groin. Denies any new neurological complaints. States she is ready to go home. Review of Systems Review of Systems: All systems reviewed & are unremarkable except as noted in HPI & below Physical Exam Constitutional: WD/WN, vitals as above Neck: trachea midline R neck incision C/D/I. Mild local soft edema, tenderness, and minimal ecchymosis. Respiratory: normal respiratory effort Auscultation: lungs clear to auscultation bilaterally and + diminished lung sounds Cardiovascular: Rate/Rhythm: + irregularly irregular Vessels: + carotid bruit and femoral pulses present; + abnormal peripheral pulses Gastrointestinal (Abdomen): Inspection/Auscultation: abdomen normal to inspection and normal bowel sounds Percussion/Palpation: abdomen soft; abdomen nontender Musculoskeletal: Extremities: extremities normal to inspection and + abnormal strength (R hand strength 4/5 chronically) Skin: no rashes, warm and dry Neurologic: moves all extremities and awake; not confused (but does have chronic memory problems) Psychiatric: A+Ox3, euthymic affect Results & Data ([facility]) Vital Signs (Past 12 Hours) Vital Signs Temp Pulse Resp BP Pulse Ox O2 Del Method 07/26/22 08:45 48 L 21 91 07/26/22 08:30 48 L 15 94 07/26/22 08:15 49 L 16 95 07/26/22 08:00 46 L 20 96 07/26/22 07:45 46 L 18 93 07/26/22 07:30 54 L 24 93 07/26/22 07:15 46 L 18 94 07/26/22 07:00 49 L 16 90 07/26/22 07:00 146/59 H 07/26/22 06:45 49 L 17 91 07/26/22 06:30 44 L 13 92 Room Air 07/26/22 06:00 50 L 17 143/58 H 95 Room Air 07/26/22 05:30 59 L 18 96 Room Air 07/26/22 05:00 51 L 18 138/67 95 Room Air 07/26/22 04:30 50 L 17 92 Room Air 07/26/22 04:00 36.8 C 50 L 14 146/60 H 92 Room Air 07/26/22 03:30 47 L 18 93 Room Air 07/26/22 03:00 50 L 24 140/45 L 92 Room Air 07/26/22 02:30 51 L 17 92 Room Air 07/26/22 02:00 52 L 15 142/46 H 91 Room Air 07/26/22 01:30 51 L 15 91 Room Air 07/26/22 01:00 51 L 21 127/43 L 92 Room Air 07/26/22 00:30 51 L 20 92 Room Air
--- NOTE | 2022-07-26 12:29 | Discharge Summary ---
Date of Service July 26, 2022 Admission HPI Per Admitting Provider Name: CAREN DIEHL Patient Number: [id number] : 1955 Date of Service: 07/11/2022 Chief Complaint: _Follow-up after CTA HPI: _Ms. Diehl is a middle-aged female who presents to Dr. Singh's vascular surgery clinic today for a follow-up visit after undergoing a CTA of the neck due to significantly worsened right ICA stenosis noted on a recent surveillance ultrasound. Patient has a history of suffering a significant left hemispheric stroke in the remote past, which has left her with some short-term memory problems. For this reason we requested that she bring a family member with her to the appointment today. She does bring her [id number] with her, as her sister is currently in the hospital. Patient denies any new neurological concerns, including amaurosis, new extremity weakness numbness or tingling, new speaking or swallowing problems, new onset confusion, facial droop, other concerns. The neck CTA performed at [facility] on 06/28/2022 confirms over 90% stenosis of her right ICA, and her chronic left ICA occlusion is once again demonstrated. Current Home Meds: (Last Updated 07/11 13:52) albuterol (albuterol CFC free 90 mcg/inh MDI) 2 puff inhaled qid PRN: as needed for wheezing aspirin (aspirin 81 mg oral delayed release tablet) 81 mg PO Daily atorvastatin (atorvastatin 80 mg oral tablet) 80 mg PO qhs cholecalciferol (cholecalciferol 25 mcg (1000 intl units) oral tablet) 25 mcg PO Daily citalopram (citalopram 10 mg oral tablet) 10 mg PO Daily clopidogrel (clopidogrel 75 mg oral tablet) 75 mg PO Daily diclofenac topical (diclofenac 1% topical gel) 1 appl topical qid PRN: Pain lisinopril (lisinopril 40 mg oral tablet) 40 mg PO Daily metoprolol (Metoprolol Succinate ER 25 mg oral tablet, extended release) 12.5 mg PO bid multivitamin with minerals (Airborne oral tablet, chewable) omeprazole (omeprazole 40 mg oral delayed release capsule) TAKE 1 CAPSULE BY MOUTH TWICE PER DAY temazepam (temazepam 15 mg oral capsule) 15 mg PO qhs PRN: as needed for sleep warfarin (warfarin 7.5 mg oral tablet) Allergies and Sensitivities: NKA Past Medical History: Problems: Tobacco user Carotid artery stenosis OBJECTIVE Vitals: Last Updated 07/11/22 13:54 Date Temp BP Location Pulse RR SpO2 Pain 07/11/22 194/72 Right Arm 72 97 0 05/22/22 0 05/22/22 180/76 Right Arm Vital Signs are the last 3 documented. No Orthostatic Data Available Height and Weight: Last Updated 05/22/22 15:03 Date BMI Wt(kg) Wt(lb) Method Ht(cm) (ft-in) Method 05/22/22 76.7 169 Standing Scale 03/13/22 77.7 171 Standing Scale Heights and Weights are the last 3 documented. Physical Exam Constitutional: In general patient is a healthy-appearing well-nourished well- developed middle-aged female in no distress. She is alert and oriented x3, although does occasionally repeat questions. She has no significant focal neurological deficits otherwise. Her heart is regular, her lungs are decreased but clear. Her abdomen is soft nontender with normoactive bowel sounds in all 4 quadrants. Her distal pulses are faintly palpable in the lower extremities ASSESSMENT: _ PLAN: _ 1 ) _severe right ICA stenosis Patient has over 90% stenosis of the right internal carotid artery, which puts her at a significantly increased risk of stroke. She does not have current symptoms, however, we recommend that she undergo surgery due to the severity of her stenosis. The procedures, risks, benefits, and alternatives of carotid endarterectomy as well as transcarotid artery revascularization(TCAR), were discussed with the patient. Her [id number] was present as well. Patient elects to proceed with TCAR. The procedure will be scheduled in the next few weeks at the patient's convenience. She is advised to call here with any questions or concerns. A considerable amount of time was spent discussing the procedures and risks with the patient. Thank you for letting us participate in the care of this patient. Signature Line Electronic Signature on File CC: Jason Donahue MD [facility] [id number] * Electronically Reviewed/Signed by: Tomasa Lilly PA-C Author Signature Dt/Tm:07/12/2022 01:50 PM [facility] [place], [address] [place] [address] Electronically Reviewed/Signed by: Gus Singh MD Cosigner Signature Dt/Tm: 07/13/2022 08:18 AM [employer]master [employer] Alin Lim [facility] [place] [address], [address] [place] [address] LM Result Type: HVI Outpt Note Date of Service: July 12, 2022 13:42 EDT Authorization Status: Final Author or Import Date: KWABENA Lilly, Tomasa on July 12, 2022 13:50 EDT Verified By: MD Samantha, Gus Us on July 13, 2022 08:18 EDT Encounter info: [id number], [facility], Clinic, 07/11/2022 - 07/11/2022 Admission Exam Per Admitting Provider Constitutional: In general patient is a healthy-appearing well-nourished well- developed middle-aged female in no distress. She is alert and oriented x3, although does occasionally repeat questions. She has no significant focal neurological deficits otherwise. Her heart is regular, her lungs are decreased but clear. Her abdomen is soft nontender with normoactive bowel sounds in all 4 quadrants. Her distal pulses are faintly palpable in the lower extremities Principal Diagnosis 1. s/p TCAR Right 2. Severe R ICA stenosis Discharge Exam Constitutional WD/WN, vitals as above Neck trachea midline Respiratory normal respiratory effort Auscultation: lungs clear to auscultation bilaterally and + diminished lung sounds Cardiovascular Rate/Rhythm: + irregularly irregular Vessels: + carotid bruit and femoral pulses present; + abnormal peripheral pulses Gastrointestinal (Abdomen) Inspection/Auscultation: abdomen normal to inspection and normal bowel sounds Percussion/Palpation: abdomen soft; abdomen nontender Musculoskeletal Extremities: extremities normal to inspection and + abnormal strength (R hand strength 4/5 chronically) Skin no rashes, warm and dry Neurologic moves all extremities and awake; not confused (but does have chronic memory problems) Psychiatric A+Ox3, euthymic affect Discharge Data Allergies Allergy/AdvReac Type Severity Reaction Status Date / Time No Known Drug Allergies Allergy Unknown ` Verified 07/25/22 06:28 Consultations 07/25/22 11:31 Consult Aviation [employer] Routine Procedures Performed Operation Date: 07/25/22 08:00 Actual Procedures p Right Transcarotid Artery Revascularization with Ultrasound Localization of Left Femoral Vein(Right) - Gus Singh MD Ordered Studies 07/25/22 07:14 EV angio carotid external RT Routine US EV guide vascular access Routine Hospital Course (1) Carotid stenosis, bilateral: Pt now s/p R TCAR procedure. Doing well post op day #1. Discussed with Dr Singh. D/C home today. Will follow up in office in 2 weeks. Total Time Total Time Spent Total Time Spent (In Minutes): 0 Discharge Plan Discharge Items Patient Disposition: Home - Self-Care Reason For Visit: Right Carotid Artery Stenosis Discharge Diagnosis: 1. s/p Transcarotid Artery Revascularization RIGHT 2. Severe Right Carotid Stenosis Condition on Discharge: Good Activity: Per Instructions section Non-emergency contact: Primary Care Provider and Surgeon Call non-emergency contact if: you have any medication questions, your symptoms worsen, your pain is concerning for you, you have a fever, your wound has increased redness and your wound has increased drainage Follow-up/Referrals: Jason Donahue MD [Primary Care Provider] - (Follow up with PCP within 1- 2 weeks) Gus Singh MD [Physician] - (Follow up with Dr Singh or Tomasa Lilly PA-C, within 2 weeks post op) Diet: Heart Healthy Addtl Attending Provider Instructions: 1. May shower and dry surgical sites gently. 2. No lifting more than 10 lbs with R arm for [address] Singh's office at [phone] with any questions or concerns. 4. Have new INR drawn on 07/28/22, and follow instructions from your PCP regarding warfarin dosage. Pending Studies at Discharge: No Stand-Alone Forms: My [employer], Smoking Cessation Medications and DC Order Prescriptions: New oxycodone-acetaminophen [Percocet] 5-325 mg Tablet 1 - 2 tab PO Q6H PRN (Reason: Pain) Qty: 20 0RF Continued warfarin [Coumadin] 7.5 mg Tablet 7.5 mg PO UD Rx Instructions: tuesdays, only warfarin [Coumadin] 7.5 mg Tablet 3.75 mg PO UD Rx Instructions: sunday, sunday, sunday, sunday, sunday lisinopril 40 mg Tablet 40 mg PO QAM cholecalciferol (vitamin D3) [Vitamin D3] 25 mcg (1,000 unit) Capsule 25 mcg PO QAM temazepam 15 mg Capsule 15 mg PO HS PRN (Reason: Sleep) atorvastatin 80 mg tablet 80 mg PO HS citalopram 10 mg tablet 10 mg PO QAM albuterol sulfate 90 mcg/actuation HFA aerosol inhaler 1 puff INHALATION QID PRN (Reason: Shortness Of Breath) nicotine [Nicoderm CQ] 21 mg/24 hr Patch 24 Hour 21 mg transdermal QAM Qty: 14 0RF clopidogrel 75 mg Tablet 75 mg PO QAM Qty: 30 2RF metoprolol succinate 25 mg Tablet Extended Release 24 Hr 25 mg PO BID Qty: 60 2RF aspirin 81 mg Tablet,Delayed Release (Dr/Ec) 81 mg PO QAM Qty: 30 2RF Discharge Orders: Discharge Order (Routine); Ordered 07/26/22 Ordered By: Tomasa Lilly Admission Data Admit Date/Time: 07/25/22 07:36 Attending Provider: Gus Singh Admit Provider: Gus Singh Primary Care Provider: Jason Donahue Other Providers: Gordo Nair ; Joseluis Pagan ; Denton Quintero ; All Castaneda ; Howard Pearson ; Raúl Bobo ; Willi Wheat ; Vinny Kenyon ; Parisa Covington ; [facility]
[2022-07-26] MEDS ORDERED: WARFARIN SOD 1.25 MG TAB PO SCH (16:00)
--- NOTE | 2022-08-01 07:41 | History & Physical Bridge Note ---
Date of Service August 01, 2022 History & Physical Bridge Note I have examined the patient, reviewed the History & Physical and in the interval since the performance of the History & Physical I have noted the following changes of clinical significance: no changes noted
== END 2022-07-26 13:36 | disposition home health service (06) | DRG 35 ==
LOC: ASU 05:17 → 1E 07:36
PROC: EV.TCAR (2022-07-25 08:00)